=== PATIENT | female | born 1985 | race Caucasian/White ===

== ENCOUNTER → 2018-09-15 13:04 | Outpatient (CLI) | payer OTHER, MEDICAID, SELFPAY ==
[2018-09-15 13:13] LABS: Bacteria Urine None Seen
[2018-09-15 13:44] LABS: Hematocrit 43.4 % (36-46); Hemoglobin 14.7 g/dL (12.0-16.0); Mean Corpuscular Hemoglobin 26.6 PG (26-34); Mean Corpuscular Volume 78.3 fL (80-100); Platelet Count 401 X10^3/uL (150-400); Red Blood Cell Count 5.54 X10^6/uL (4.0-5.2); Red Cell Distribution Width 14.1 % (11.6-14.8); White Blood Cell Count 6.9 X10^3/uL (4.5-11.0)
[2018-09-15 14:03] LABS: Appearance Urine UA CLOUDY; Bilirubin Urine UA NEGATIVE (NEGATIVE); Color Urine UA YELLOW; Glucose Urine UA NEGATIVE (Negative); Ketones Urine UA TRACE (NEGATIVE); Leukocyte Esterase Urine UA 2+ (NEGATIVE); Nitrite Urine UA POSITIVE (Negative); Occult Blood Urine UA 1+ (Negative); Protein Urine UA TRACE (Negative); Urobilinogen Urine UA 0.2 E.U./dL (0.2)
[2018-09-15 14:10] LABS: Alanine Aminotransferase 25 IU/L (9-52); Albumin 4.6 g/dL (3.5-5.0); Albumin Globulin Ratio 1.4 (1.0-2.8); Alkaline Phosphatase 139 U/L (38-126); Aspartate Aminotransferase 22 IU/L (14-36); BUN Creatinine Ratio 15.7 (6-22); Bilirubin Total 0.5 mg/dL (0.2-1.3); Blood Urea Nitrogen 11 mg/dL (7-17); Carbon Dioxide 18 mmol/L (22-32); Chloride 111 mmol/L (98-107); Cholesterol 232 mg/dL (140-199); Estimated Glomerular Filt Rate > 60.0 mL/min (>60); Globulin 3.3 g/dL (1.7-4.1); Glucose 101 mg/dL (70-100); HDL Cholesterol 51 mg/dL (40-60); HEMOLYSIS < 15 (0-50); LDL Cholesterol Calculated 154 mg/dL (<100); Potassium 4.7 mmol/L (3.4-5.1); Sodium 142 mmol/L (137-145); Total Protein 7.9 g/dL (6.3-8.2); Triglycerides 134 mg/dL (35-150)
[2018-09-15 14:34] LABS: TSH w/ Reflex to FT4 2.86 uIU/mL (0.47-4.68)
[2018-09-15 14:35] LABS: Neutrophils Absolute Manual 3864 /uL (3000-5900); RBC Morphology Normal Morphology; Total Cells Counted 100
[2018-09-15 14:58] LABS: RBC Urine 1-5/HPF (0-5/HPF); Squamous Epithelial Cell Urine 5-10 /HPF (0-5/HPF); Transitional Epi Cells Urine 1-5/HPF (0-5/HPF); WBC Urine 10-30/HPF (0-5/HPF)
[2018-09-16 09:19] LABS: Culture Indicated Urine Specimen Cultured
== END ==
PROVIDERS: PCP Nurse Practitioner; Visit Provider Nurse Practitioner
DX: E78.5 Hyperlipidemia, unspecified (principal); N39.0 Urinary tract infection, site not specified; Z00.00 Encounter for general adult medical examination without abnormal findings
CPT/HCPCS: 36415; 80053; 80061; 81001; 84443; 85025; 87077; 87086; 87186

== ENCOUNTER 2019-04-16 12:44 | Emergency (ER) | payer OTHER, MEDICAID, SELFPAY ==
[2019-04-16 13:09] VITALS: BP 132/81; PULSE 89; RESP 15; TEMP 37.2; O2SAT 98; BMI 41.5
--- NOTE | 2019-04-16 14:59 | ED.PSYCH ---
HPI - Psych General Chief Complaint: Psychiatric Symptoms Stated Complaint: in family, now has anxiety and mental health Time Seen by Provider: 04/16/19 12:59 Source: patient Mode of arrival: Ambulatory Limitations: no limitations History of Present Illness HPI Narrative: 33-year-old female with a significant history of mental health issues in the past with prior attempts at suicide here for evaluation of multiple symptoms. She states that last week she was started on Augmentin for sinus infection. She states that the day after she started the antibiotics she started having nausea vomiting and diarrhea. This continued since then. It is also on the same day that she learned that a relative of hers committed suicide. She states she has been feeling very depressed since then. Also having anxiety. She denies any suicidal homicidal ideation however she states that ?I do not feel anything ?which he states concerns her. Denies any alcohol or drug use. Has not tried anything for symptoms. Is taking her normal medications. Related Data Home Medications Medication Instructions Recorded Confirmed escitalopram oxalate 10 mg tablet 10 mg PO DAILY 11/25/18 04/16/19 albuterol sulfate [Ventolin HFA] 2 puff INH Q4HP PRN 04/16/19 amoxicillin-pot clavulanate 1 tab PO [id number] 04/16/19 04/16/19 [Augmentin] oxybutynin chloride 5 mg PO DAILY 04/16/19 04/16/19 Previous Rx's Medication Instructions Recorded lorazepam [Ativan] 1 mg PO TID PRN #10 tab 04/16/19 ondansetron 4 mg PO Q6H PRN #7 tab 04/16/19 Allergies Allergy/AdvReac Type Severity Reaction Status Date / Time hydrocodone [From VICODIN] Allergy Severe Rash and Verified 04/16/19 13:09 vomiting, trouble breathing. diazepam [From Valium] Allergy Intermediate hives Verified 04/16/19 13:09 sumatriptan [From IMITREX] Allergy Unknown Verified 04/16/19 13:09 Review of Systems Constitutional Constitutional: Denies fever(s) ENT Ears, Nose, Mouth, and Throat: Denies vertigo and Denies dizziness Cardiovascular Cardiovascular: Denies chest pain and Denies dyspnea Respiratory Respiratory: Denies cough and Denies dyspnea Gastrointestinal Gastrointestinal: Reports abdominal pain, Reports diarrhea, Reports nausea and Reports vomiting Genitourinary Genitourinary: Denies dysuria Musculoskeletal Musculoskeletal: Denies myalgias and Denies arthralgias Integumentary/Breasts Skin/Breast: Denies lesions and Denies rash Neurologic Neurologic: Reports behavioral changes, Denies confusion, Denies vertigo and Denies dizziness Psychiatric Psychiatric: Reports anxiety, Reports behavioral changes, Denies confusion, Denies homicidal ideation and Denies suicidal ideation Hematologic/Lymphatic Hematologic/Lymphatic: Denies easy bleeding and Denies easy bruising Patient History Medical History Morbid obesity with BMI of 45.0-49.9, adult (Inactive) Family History (Updated 01/20/15 @ 00:00 by Conversion Provider) Grandmother Age: 88 COPD (chronic obstructive pulmonary disease) Arthritis Asthma Hypertension High cholesterol Mother Age: 55 Endometriosis Hypertension High cholesterol Grandmother Age: 79 COPD (chronic obstructive pulmonary disease) Social History Smoking Status: Never smoker Smoking Status: Never smoker alcohol intake frequency: other Substance Use Type: does not use Exam Initial Vital Signs Initial Vital Signs: Vital Signs Temperature 98.9 F 04/16/19 13:09 Pulse Rate 89 04/16/19 13:09 Respiratory Rate 15 04/16/19 13:09 Blood Pressure 132/81 04/16/19 13:09 Pulse Oximetry 98 04/16/19 13:09 Const General: cooperative, comfortable, well developed and well groomed Limitations: mental status not altered HENMT Head: normal to inspection and normocephalic Resp Effort & Inspection: normal respiratory effort Cardio Rate: regular rate Skin Lesions: no lesions Neuro General: alert and awake Cognition: normal cognition Speech: speech normal Extrem General: normal to inspection Psych Appearance: grossly normal and well kempt Speech and Movement: not agitated and not restless Mood: congruent mood Affect: normal affect Attitude: cooperative Thought Process: normal Thought Content: suicidality Course Orders Ordered: ED Orders 04/16/19 15:26 Consult to WIRE BOUND BOX MACHINE OPERATOR - Silver Steward Stat Vital Signs Vital signs: Vital Signs - 8 hr 04/16/19 13:09 04/16/19 16:52 Temperature 98.9 F Pulse Rate 89 74 Respiratory Rate 15 16 Blood Pressure 132/81 Blood Pressure [Right Arm] 124/77 Pulse Oximetry 98 99 MDM - Psych MDM Narrative Medical decision making narrative: Discuss the patient's nausea and vomiting and diarrhea. I did inform her that it could be related to the antibiotics that she is on. Also stated that he could also be the anxiety that she is having. Informed her that since she has been on antibiotics for 7 days that she could stop the last day if she would like. Will send her home with nausea medication for this. Patient is also exhibiting anxiety. She denied any suicidal homicidal ideation. She stated that she does not feel like she needs admitted to the hospital. Attempted to contact case management here in the hospital to have them come and talk with the patient or they are unavailable. We were able to get a follow-up phone call this evening from [facility]. Patient states she is okay with this. Send her home with some Ativan. She is going to call her mental health provider tomorrow for follow-up. She was given strict return precautions. She stated that she does feel safe going home and will contact someone if her symptoms start to worsen. Discharge Plan Departure Patient Disposition: Home Clinical Impression: Anxiety, Nausea Diarrhea Qualifiers: Diarrhea type: unspecified type Qualified Code(s): R19.7 - Diarrhea, unspecified Discharge Date/Time: 04/16/19 16:57 Instructions: DI for Anxiety -- Adult, DI for Nausea -- Adult Activity Restrictions/Additional Instructions: Recommend that you contact your mental health provider tomorrow to discuss follow-up. Continue to take all of your medications like we discussed. Return to the emergency department for any new or worsening symptoms Prescriptions: New ondansetron 4 mg tablet,disintegrating 4 mg PO Q6H PRN (Reason: nausea and vomiting) Qty: 7 RF: 0 lorazepam [Ativan] 1 mg tablet 1 mg PO TID PRN (Reason: anxiety) Qty: 10 RF: 0 No Action escitalopram oxalate [Lexapro] 10 mg tablet 10 mg PO DAILY RF: 0 oxybutynin chloride 5 mg tablet extended release 24hr 5 mg PO DAILY RF: 0 amoxicillin-pot clavulanate [Augmentin] 875-125 mg tablet 1 tab PO [id number] RF: 0 albuterol sulfate [Ventolin HFA] 90 MCG/PUFF HFA aerosol inhaler 2 puff INH Q4HP PRN (Reason: Shortness Of Breath) RF: 0 Referrals: Aditi uL ARNP [Primary Care Provider] -
--- NOTE | 2019-04-16 16:50 | CM.DPNOTE ---
Spoke to Dr. Tobin via phone. MD reported that patient was not suicidal just feeling down and overwhelmed. Recommended MD give patient Hospice of the support services information and [place] [facility] [place] phone call maggy and talk to her about scheduling an appointment for tomorrow..They have availability. I called ED and spoke to [place], she had just discharged patient but she was just walking out and she was going to let patient know [facility] [place] in about 3 hours.
[2019-04-16 16:52] VITALS: BP 124/77; PULSE 74; RESP 16; O2SAT 99
== END 2019-04-16 16:57 | disposition home or self-care (01) ==
PROVIDERS: Emergency Provider Emergency Medicine; PCP Nurse Practitioner
DX: F41.9 Anxiety disorder, unspecified (principal); R11.0 Nausea; R19.7 Diarrhea, unspecified
CPT/HCPCS: 99282; 99283

== ENCOUNTER 2019-04-28 14:46 | Emergency (ER) | payer OTHER, MEDICAID, SELFPAY ==
[2019-04-28 14:57] VITALS: BP 123/79; PULSE 93; RESP 16; TEMP 37.2; O2SAT 99
--- NOTE | 2019-04-28 15:07 | PC.NURSE ---
Pt had stated that she was here in the ED on 04/15, put on Augmentin for a sinus infection.States It didn't do anything. Has appt with PCP on 05/23.Also states was given Rx for anti-anxiety med which she is out of & cannot get in to see her Provider for refill.
--- NOTE | 2019-04-28 15:51 | ED.ANXIETY ---
HPI - Anxiety General Chief Complaint: Anxiety Stated Complaint: SEVERE ANXIETY Time Seen by Provider: 04/28/19 14:46 Source: patient Mode of arrival: Ambulatory Limitations: no limitations History of Present Illness HPI narrative: 33F nonsmoker with long history of anxiety presents with her mother and chief complaint of ongoing anxiety and other complaints and nausea, vomiting diarrhea and difficulty with sleep. She states that she was seen and evaluated here about a week ago and was given a short course anti exactly medications which she has run out of. She states she has a primary care provider but they do not do much work with mental health or prescribed medications. Furthermore she has prescribing provider for mental health but they were unable to get her in for many weeks. She denies any suicidal or homicidal ideation. She denies any significant alcohol, caffeine, nicotine or street drugs. She denies recent travel, injury nor fever or chills. She states that the symptoms largely started upon receiving notification that her cousin had committed suicide. MD complaint: anxiety Related Data Home Medications Medication Instructions Recorded Confirmed escitalopram oxalate 10 mg tablet 10 mg PO DAILY 11/25/18 04/16/19 albuterol sulfate [Ventolin HFA] 2 puff INH Q4HP PRN 04/16/19 amoxicillin-pot clavulanate 1 tab PO [id number] 04/16/19 04/16/19 [Augmentin] oxybutynin chloride 5 mg PO DAILY 04/16/19 04/16/19 Previous Rx's Medication Instructions Recorded lorazepam [Ativan] 1 mg PO TID PRN #10 tab 04/16/19 ondansetron 4 mg PO Q6H PRN #7 tab 04/16/19 lorazepam [Ativan] 1 mg PO BID PRN #10 tab 04/28/19 Allergies Allergy/AdvReac Type Severity Reaction Status Date / Time hydrocodone [From VICODIN] Allergy Severe Rash and Verified 04/16/19 13:09 vomiting, trouble breathing. diazepam [From Valium] Allergy Intermediate hives Verified 04/16/19 13:09 sumatriptan [From IMITREX] Allergy Unknown Verified 04/16/19 13:09 Review of Systems Constitutional Constitutional: Denies chills, Denies fatigue, Denies fever(s), Denies frequent falls, Denies lethargy and Denies weakness Eyes Eyes: Denies change in vision, Denies eye discharge, Denies irritation and Denies loss of vision ENT Ears, Nose, Mouth, and Throat: Denies change in voice, Denies dizziness, Denies neck pain, Denies sore throat and Denies throat swelling Cardiovascular Cardiovascular: Denies chest pain, Denies irregular heart rhythm, Denies lightheadedness, Denies palpitations, Denies dyspnea, Denies dyspnea on exertion and Denies orthopnea Respiratory Respiratory: Denies cough, Denies dyspnea, Denies dyspnea on exertion and Denies wheezing Gastrointestinal Gastrointestinal: Denies abdominal pain, Denies change in bowel habits, Denies diarrhea, Denies nausea and Denies vomiting Genitourinary Genitourinary: Denies hematuria, Denies flank pain, Denies urinary incontinence and Denies urinary urgency Musculoskeletal Musculoskeletal: Denies back pain, Denies muscle weakness, Denies neck pain, Denies numbness and Denies tingling Integumentary/Breasts Skin/Breast: Denies pruritus, Denies erythema, Denies rash and Denies wounds Neurologic Neurologic: Denies behavioral changes, Denies confusion, Denies dizziness, Denies frequent falls, Denies loss of vision, Denies numbness, Denies tingling and Denies weakness Psychiatric Psychiatric: Reports anxiety, Denies behavioral changes, Denies confusion, Denies depression, Denies homicidal ideation and Denies suicidal ideation Endocrine Endocrine: Denies fatigue, Denies flushing and Denies palpitations Hematologic/Lymphatic Hematologic/Lymphatic: Denies easy bruising Allergic/Immunologic Allergic/Immunologic: Denies urticaria, Denies throat swelling and Denies wheezing Patient History Medical History Morbid obesity with BMI of 45.0-49.9, adult (Inactive) Family History Grandmother Age: 88 COPD (chronic obstructive pulmonary disease) Arthritis Asthma Hypertension High cholesterol Mother Age: 55 Endometriosis Hypertension High cholesterol Grandmother Age: 79 COPD (chronic obstructive pulmonary disease) Social History Smoking Status: Never smoker Smoking Status: Never smoker alcohol intake frequency: other Substance Use Type: does not use Exam Narrative Exam Narrative: GENERAL: [33] year old patient appears stated age. Well-nourished, well-developed patient, in mild distress. Mildly tearful. Good insight HEAD: Atraumatic. Normocephalic. EYES: Pupils equal round and reactive. Extraocular motions intact. No scleral icterus. No injection or drainage. ENT: Nose without bleeding, purulent drainage. Throat without erythema, tonsillar hypertrophy or exudate. Airway patent. NECK: Trachea midline. Non tender CARDIOVASCULAR: Regular rate and rhythm without murmurs, gallops, or rubs. RESPIRATORY: Clear to auscultation. Breath sounds equal bilaterally. No wheezes, rales, or rhonchi. GASTROINTESTINAL: Abdomen soft, non-tender, nondistended. EXTREMITIES: No edema or joint tenderness. BACK: Nontender without deformity or crepitance. No flank tenderness. NEURO: AOx3. SKIN: No rash or erythema of visible areas Initial Vital Signs Initial Vital Signs: Vital Signs Temperature 98.9 F 04/28/19 14:57 Pulse Rate 93 H 04/28/19 14:57 Respiratory Rate 16 04/28/19 14:57 Blood Pressure 123/79 04/28/19 14:57 Pulse Oximetry 99 04/28/19 14:57 Course Orders Ordered: ED Orders 04/28/19 15:06 Consult to NET LEAD DEVELOPER - Marshmallow Machine Worker Stat Reevaluation(s) Reevaluation #1: patient seen by NET LEAD DEVELOPER and close follow up secured (see their note and DC instructions for details) Vital Signs Vital signs: Vital Signs - 8 hr 04/28/19 14:57 04/28/19 16:17 Temperature 98.9 F Pulse Rate 93 H 88 Respiratory Rate 16 16 Blood Pressure 123/79 Blood Pressure [Left Arm] 127/83 Pulse Oximetry 99 98 Discharge Plan Departure Patient Disposition: Home Clinical Impression: Acute anxiety Discharge Date/Time: 04/28/19 16:20 Instructions: Anxiety Disorders Activity Restrictions/Additional Instructions: *You have been diagnosed with [ Acute on Chronic Anxiety ] *What to do: *Take medications as directed *Follow up with your counselor tomorrow through [facility] via the already planned telephone call *Follow up with your Psychiatrist on at 1130am at the [facility] ([phone]) *Return to ER if you should have any new, worsening or concerning symptoms Prescriptions: New lorazepam [Ativan] 1 mg tablet 1 mg PO BID PRN (Reason: anxiety) Qty: 10 RF: 0 No Action escitalopram oxalate [Lexapro] 10 mg tablet 10 mg PO DAILY RF: 0 oxybutynin chloride 5 mg tablet extended release 24hr 5 mg PO DAILY RF: 0 amoxicillin-pot clavulanate [Augmentin] 875-125 mg tablet 1 tab PO [id number] RF: 0 albuterol sulfate [Ventolin HFA] 90 MCG/PUFF HFA aerosol inhaler 2 puff INH Q4HP PRN (Reason: Shortness Of Breath) RF: 0 ondansetron 4 mg tablet,disintegrating 4 mg PO Q6H PRN (Reason: nausea and vomiting) Qty: 7 RF: 0 lorazepam [Ativan] 1 mg tablet 1 mg PO TID PRN (Reason: anxiety) Qty: 10 RF: 0 Referrals: [facility] [Outside] [facility] [Outside] Aditi Lu ARNP [Primary Care Provider] -
[2019-04-28 16:17] VITALS: BP 127/83; PULSE 88; RESP 16; O2SAT 98
== END 2019-04-28 16:20 | disposition home or self-care (01) ==
PROVIDERS: Emergency Provider Emergency Medicine; PCP Nurse Practitioner
DX: F41.9 Anxiety disorder, unspecified (principal); R11.2 Nausea with vomiting, unspecified; R19.7 Diarrhea, unspecified
CPT/HCPCS: 99281

== ENCOUNTER 2019-05-06 17:55 | Emergency (ER) | payer OTHER, MEDICAID, SELFPAY ==
[2019-05-06 18:01] VITALS: BP 129/69; PULSE 97; RESP 18; TEMP 36.4; O2SAT 99
--- NOTE | 2019-05-06 18:14 | ED_ITS ---
HPI - Psych General Chief Complaint: Psychiatric Symptoms Stated Complaint: mental health consult Time Seen by Provider: 05/06/19 18:14 Source: patient and family (mother) Mode of arrival: Ambulatory Limitations: no limitations History of Present Illness HPI Narrative: This is a 33-year-old female who comes with request for voluntary placement. Patient states she feels mentally unstable she has a history of anxiety and depression. She has a history of cutting herself. She states she does not wish to kill herself right now but she is having thoughts frequently. She states she does not wish to harm anyone else but she does have thoughts and faint a size about harming people who ?annoy her?. Patient states that she had a cousin who in the last month, a grandmother who fell and was injured and another cousin who was missing but was ultimately found and these have all been exacerbating factors. She actually states she tends to self isolate quite a bit so she has not found the recent changes with self isolation to be frustrating or much of a change other than her family is spending more time with her. Patient is not having hallucinations she was seen by her counselor who felt that she did need placement and patient is willing involuntary at this time. She has had placement at psychiatric facilities at [facility] and [facility] in the past. She was seen twice here earlier this month for anxiety and was given lorazepam which is sometimes helpful when she is having increased anxiety attacks. Her physician changed to clonazepam but told her she can still take the lorazepam on an emergent basis. She is accompanied by her mother who also correlates her story and history. Related Data Home Medications Medication Instructions Recorded Confirmed oxybutynin chloride 5 mg PO DAILY 04/16/19 05/06/19 clonazepam 2 mg PO BID 05/06/19 05/06/19 diphenhydramine HCl [Sleep Aid 50 mg PO BEDTIME 05/06/19 05/06/19 (diphenhydramine)] famotidine [Pepcid] 20 mg PO DAILY 05/06/19 05/06/19 fexofenadine-pseudoephedrine 1 tab PO QAM 05/06/19 05/06/19 [Peyton-D 24 Hour] Allergies Allergy/AdvReac Type Severity Reaction Status Date / Time hydrocodone [From VICODIN] Allergy Severe Rash and Verified 03/25/20 22:58 vomiting, trouble breathing. diazepam [From Valium] Allergy Intermediate hives Verified 05/06/19 22:58 sumatriptan [From IMITREX] Allergy Unknown Verified 05/06/19 22:58 Review of Systems Review of Systems ROS Unobtainable: All systems reviewed & are unremarkable except as noted in HPI and below Patient History Medical History Morbid obesity with BMI of 45.0-49.9, adult (Inactive) Social History Smoking Status: Never smoker Smoking Status: Never smoker alcohol intake frequency: other Substance Use Type: does not use Exam Narrative Exam Narrative: GENERAL: Alert and oriented x three, obese female in mild distress. HEENT: Head normocephalic, atraumatic, EOMI, pupils reactive, face symmetric, moist mucous membranes NECK: Supple, full range of motion CARDIOVASCULAR: Regular rate and rhythm without murmurs, rubs or gallops. RESPIRATORY: Breath sounds equal bilaterally, no wheezes rales or rhonchi. ABDOMEN: Soft, nontender. Normoactive bowel sounds all 4 quadrants. No guarding or rebound, rigidity, no mass : No CVA tenderness EXTREMITIES: Normal range of motion, no clubbing or edema. Neurovascularly intact NEUROLOGICAL: Cranial nerves II through XII grossly intact. Moving all extremities SKIN: Warm, dry, no petechiae, no rashes or lesions PSYCH: Suicidal thoughts, no current intent, no hallucinations. Positive for depression and anxiety as well as history of PTSD. Initial Vital Signs Initial Vital Signs: Vital Signs Temperature 97.5 F L 05/06/19 18:01 Pulse Rate 97 H 05/06/19 18:01 Respiratory Rate 18 05/06/19 18:01 Blood Pressure 129/69 05/06/19 18:01 Pulse Oximetry 99 05/06/19 18:01 Course Orders Ordered: ED Orders 05/06/19 18:47 Complete Blood Count AUTO DIFF Stat Comprehensive Metabolic Panel Stat Ethanol (ETOH) Stat Lipase Stat Thyroid Stimulating Hormone Stat 05/06/19 19:25 Urine Culture Stat Urine Drug Screen, Rapid Stat Urine Microscopic Stat Vital Signs Vital signs: Vital Signs - 8 hr 05/06/19 18:01 05/06/19 22:19 05/06/19 23:59 Temperature 97.5 F L 98.7 F Pulse Rate 97 H 74 76 Respiratory Rate 18 18 18 Blood Pressure 129/69 Blood Pressure [Left Arm] 109/61 117/76 Pulse Oximetry 99 99 99 MDM - Psych Lab Data Attestation: I reviewed the patient's lab results. Result diagrams: 05/06/19 18:47 05/06/19 18:47 Labs: Lab Results 05/06/19 05/06/19 05/06/19 Range/Units 18:47 18:47 18:47 WBC 10.9 (4.5-11.0) X10^3/uL RBC 5.29 H (4.0-5.2) X10^6/uL Hgb 14.4 (12.0-16.0) g/dL Hct 42.7 (36-46) % MCV 80.8 (80-100) fL MCH 27.3 (26-34) PG MCHC 33.8 (30-36) % RDW 13.3 (11.6-14.8) % Plt Count 412 H (150-400) X10^3/uL Neut % (Auto) 64.2 (50-75) % Lymph % (Auto) 28.2 (25-40) % [place] % (Auto) 5.8 (3-14) % Eos % (Auto) 0.7 L (2-4) % Baso % (Auto) 1.1 (0-2) % Neut # (Auto) 7000 (6302-1117) /uL Lymph # (Auto) 3100 (7427-1458) /uL [place] # (Auto) 600 (0-900) /uL Eos # (Auto) 100 (0-450) /uL Baso # (Auto) 100 (0-100) /uL Sodium 140 (137-145) mmol/L Potassium 4.1 (3.4-5.1) mmol/L Chloride 104 (98-107) mmol/L Carbon Dioxide 23 (22-32) mmol/L BUN 16 (7-17) mg/dL Creatinine 0.79 (0.52-1.04) mg/dL Estimated GFR > 60.0 (>60) mL/min BUN/Creatinine Ratio 20.3 (6-22) Glucose 93 (70-100) mg/dL Calcium 9.9 (8.4-10.2) mg/dL Total Bilirubin 0.3 (0.2-1.3) mg/dL AST 21 (14-36) IU/L ALT 13 (<35) IU/L Alkaline Phosphatase 141 H (38-126) U/L Total Protein 8.5 H (6.3-8.2) g/dL Albumin 4.6 (3.5-5.0) g/dL Globulin 3.9 (1.7-4.1) g/dL Albumin/Globulin Ratio 1.2 (1.0-2.8) Lipase (23-300) U/L TSH 2.86 (0.47-4.68) uIU/mL Urine RBC (0-5/HPF) Urine WBC (0-5/HPF) Ur Squamous Epith Cells (0-5/HPF) Urine Bacteria (None) Ur Culture Indicated? U Opiates 300ng/mL cut (Negative) Ur Oxycodone Screen (Negative) Urine Methadone Screen (Negative) Ur Barbiturates Screen (Negative) U Tricyclic Antidepress (Negative) Ur Phencyclidine Scrn (Negative) Ur Amphetamines Screen (Negative) U Methamphetamines Scrn (Negative) Ur MDMA Scrn (Ecstasy) (Negative) U Benzodiazepines Scrn (Negative) Urine Cocaine Screen (Negative) U Marijuana (THC) Screen (Negative) Ethyl Alcohol < 10 ( - 10) mg/dL 05/06/19 05/06/19 05/06/19 Range/Units 18:47 19:25 19:25 WBC (4.5-11.0) X10^3/uL RBC (4.0-5.2) X10^6/uL Hgb (12.0-16.0) g/dL Hct (36-46) % MCV (80-100) fL MCH (26-34) PG MCHC (30-36) % RDW (11.6-14.8) % Plt Count (150-400) X10^3/uL Neut % (Auto) (50-75) % Lymph % (Auto) (25-40) % [place] % (Auto) (3-14) % Eos % (Auto) (2-4) % Baso % (Auto) (0-2) % Neut # (Auto) (5011-9778) /uL Lymph # (Auto) (4650-6907) /uL [place] # (Auto) (0-900) /uL Eos # (Auto) (0-450) /uL Baso # (Auto) (0-100) /uL Sodium (137-145) mmol/L Potassium (3.4-5.1) mmol/L Chloride (98-107) mmol/L Carbon Dioxide (22-32) mmol/L BUN (7-17) mg/dL Creatinine (0.52-1.04) mg/dL Estimated GFR (>60) mL/min BUN/Creatinine Ratio (6-22) Glucose (70-100) mg/dL Calcium (8.4-10.2) mg/dL Total Bilirubin (0.2-1.3) mg/dL AST (14-36) IU/L ALT (<35) IU/L Alkaline Phosphatase (38-126) U/L Total Protein (6.3-8.2) g/dL Albumin (3.5-5.0) g/dL Globulin (1.7-4.1) g/dL Albumin/Globulin Ratio (1.0-2.8) Lipase 138 (23-300) U/L TSH (0.47-4.68) uIU/mL Urine RBC 1-5/hpf (0-5/HPF) Urine WBC 5-10/hpf H (0-5/HPF) Ur Squamous Epith Cells 1-5 /hpf (0-5/HPF) Urine Bacteria Few (2-10) H (None) Ur Culture Indicated? Specimen cultured U Opiates 300ng/mL cut Negative (Negative) Ur Oxycodone Screen Negative (Negative) Urine Methadone Screen Negative (Negative) Ur Barbiturates Screen Negative (Negative) U Tricyclic Antidepress Negative (Negative) Ur Phencyclidine Scrn Negative (Negative) Ur Amphetamines Screen Negative (Negative) U Methamphetamines Scrn Negative (Negative) Ur MDMA Scrn (Ecstasy) Negative (Negative) U Benzodiazepines Scrn Negative (Negative) Urine Cocaine Screen Negative (Negative) U Marijuana (THC) Screen Negative (Negative) Ethyl Alcohol ( - 10) mg/dL Point of Care Testing Test Results Negative Urine Dip Bedside Urine Glucose Negative Bedside Urine Bilirubin - Negative Bedside Urine Ketone - Negative Urine Specific [place] 1.020 Bedside Urine Occult Blood +/- Bedside Urine pH 6.0 Bedside Urine Protein +/- 15 Bedside Urine Urobilinogen - Negative Bedside Urine Nitrite - Negative Bedside Urine Leukocytes + 70 Esterase MDM Narrative Medical decision making narrative: Patient comes in for feeling mentally unstable. She is having suicidal ideation but does not have intent. She is more anxious and depressed. She has thoughts more cutting herself but has had thoughts of killing herself as well. Patient has been in touch with her physician but with the recent covid pandemic she is not able to have [id number] visits and her psychiatrist is currently hospitalized, she has been able to speak with her counselor. Discussed with patient she is interested involuntary placement and her counselor felt that she would benefit from this as well. She is currently medically cleared here in the department paperwork was faxed to [facility] patient was accepted by Dr. Oakes. Discharge Plan Departure Patient Disposition: [facility] Clinical Impression: Depression with suicidal ideation, Anxiety Discharge Date/Time: 05/07/19 00:13 Prescriptions: No Action oxybutynin chloride 5 mg tablet extended release 24hr 5 mg PO DAILY RF: 0 clonazepam 2 mg tablet 2 mg PO BID RF: 0 diphenhydramine HCl [Sleep Aid (diphenhydramine)] 50 mg Capsule 50 mg PO BEDTIME RF: 0 famotidine [Pepcid] 20 mg Tablet 20 mg PO DAILY RF: 0 Peyton-D 24 Hour 180-240 mg Tablet Extended Release 24 Hr 1 tab PO QAM RF: 0 Referrals: Aditi Lu ARNP [Primary Care Provider] -
[2019-05-06 18:53] LABS: Add Manual Diff / Slide Review NO; Basophils Absolute Auto 100 /uL (0-100); Basophils Percent Auto 1.1 % (0-2); Eosinophils Absolute Auto 100 /uL (0-450); Eosinophils Percent Auto 0.7 % (2-4); Hematocrit 42.7 % (36-46); Hemoglobin 14.4 g/dL (12.0-16.0); Lymphocytes Absolute Auto 3100 /uL (1100-4500); Lymphocytes Percent Auto 28.2 % (25-40); Mean Corpuscular HGB Conc 33.8 % (30-36); Mean Corpuscular Hemoglobin 27.3 PG (26-34); Mean Corpuscular Volume 80.8 fL (80-100); Monocytes Absolute Auto 600 /uL (0-900); Monocytes Percent Auto 5.8 % (3-14); Neutrophils Absolute Auto 7000 /uL (1500-7000); Neutrophils Percent Auto 64.2 % (50-75); Platelet Count 412 X10^3/uL (150-400); Red Blood Cell Count 5.29 X10^6/uL (4.0-5.2); Red Cell Distribution Width 13.3 % (11.6-14.8); White Blood Cell Count 10.9 X10^3/uL (4.5-11.0)
[2019-05-06 19:03] LABS: Lipase 138 U/L (23-300)
[2019-05-06 19:05] LABS: Alanine Aminotransferase 13 IU/L (<35); Albumin 4.6 g/dL (3.5-5.0); Albumin Globulin Ratio 1.2 (1.0-2.8); Alkaline Phosphatase 141 U/L (38-126); Aspartate Aminotransferase 21 IU/L (14-36); BUN Creatinine Ratio 20.3 (6-22); Bilirubin Total 0.3 mg/dL (0.2-1.3); Blood Urea Nitrogen 16 mg/dL (7-17); Calcium 9.9 mg/dL (8.4-10.2); Carbon Dioxide 23 mmol/L (22-32); Chloride 104 mmol/L (98-107); Estimated Glomerular Filt Rate > 60.0 mL/min (>60); Ethanol (ETOH) < 10 mg/dL; Globulin 3.9 g/dL (1.7-4.1); Glucose 93 mg/dL (70-100); HEMOLYSIS < 15 (0-50); Potassium 4.1 mmol/L (3.4-5.1); Sodium 140 mmol/L (137-145); Total Protein 8.5 g/dL (6.3-8.2)
[2019-05-06 19:45] LABS: Ur Creatinine Normal (Normal); Ur Specific Gravity Normal (Normal); Urine pH Normal (Normal)
[2019-05-06 19:46] LABS: UR Morphine/Opiate cutoff 300 Negative (Negative); Urine Amphetamines Negative (Negative); Urine Barbiturates Negative (Negative); Urine Benzodiazepines Negative (Negative); Urine Cocaine Negative (Negative); Urine MDMA Negative (Negative); Urine Methadone Negative (Negative); Urine Methamphetamines Negative (Negative); Urine Oxycodone Negative (Negative); Urine Phencyclidine Negative (Negative); Urine Tetrahydrocannabinol Negative (Negative); Urine Tricyclic Antidepressant Negative (Negative)
[2019-05-06 19:47] LABS: Bacteria Urine Few (2-10); Culture Indicated Urine Specimen Cultured; RBC Urine 1-5/HPF (0-5/HPF); Squamous Epithelial Cell Urine 1-5 /HPF (0-5/HPF); WBC Urine 5-10/HPF (0-5/HPF)
[2019-05-06 19:49] LABS: Thyroid Stimulating Hormone 2.86 uIU/mL (0.47-4.68)
[2019-05-06 22:19] VITALS: BP 109/61; PULSE 74; RESP 18; TEMP 37.1; O2SAT 99
--- NOTE | 2019-05-06 23:26 | PC.NURSE ---
Report given to Marisabel Love.
[2019-05-06 23:59] VITALS: BP 117/76; PULSE 76; RESP 18; O2SAT 99
== END 2019-05-07 00:13 | disposition short-term general hospital (02) ==
PROVIDERS: Emergency Provider Emergency Medicine; PCP Nurse Practitioner
DX: R45.851 Suicidal ideations (principal); F32.9 Major depressive disorder, single episode, unspecified; F41.9 Anxiety disorder, unspecified; E66.9 Obesity, unspecified
CPT/HCPCS: 36415; 80053; 80305; 80320; 81003; 81015; 81025; 83690; 84443; 85025; 87086; 99284

== ENCOUNTER 2019-05-14 12:38 | Emergency (ER) | payer OTHER, MEDICAID, SELFPAY ==
[2019-05-14 12:42] VITALS: BP 118/66; PULSE 100; RESP 14; TEMP 36.3; O2SAT 99; BMI 42.0
--- NOTE | 2019-05-14 13:05 | ED.PSYCH ---
HPI - Psych <Viviana GramajoREYES - Last Filed: 05/14/19 20:53> General Chief Complaint: Psychiatric Symptoms Stated Complaint: Need to be admitted to psych [facility] Time Seen by Provider: 05/14/19 12:50 Source: patient Mode of arrival: Ambulatory History of Present Illness HPI Narrative: 33yo female with a history of bipolar, DANIELITO, OCD, self-mutilation, suicide attempts, and PTSD, presents emergency department stating ?I need to be admitted to the psychiatric unit at [facility]. I called them, they have a bed but told me to come here for evaluation. Patient states she has had increased thoughts of cutting herself, she has not cut herself in the past few weeks. She states, ?I feel like I am at the point that if I started cutting myself I will not be able to stop and it may lead to suicide ?. Patient states her plan was to ?cut deeper ?. She states I used a clean razor blade, I angle the razor blade because they are sharp and I don't want to cut too deep, and I clean up the cuts frequently ? She states that her therapist states ?she has the clean is cutter ?. She states her recent triggers are that her cousin committed suicide in March and her grandma ?face planted and had a bad injury from a fall. She also states it has been difficult not seeing her therapist, she feels that ?actually seeing someone for therapy would be helpful ?. Patient states she was put on ?15 medications that are making me feel like I am drunk, occasionally run into simon ?. She denies using any alcohol or recreational drugs. Patient states her parents, psychiatrist, and therapist agree that admission would be a good idea this point. Patient denies any other symptoms such as head injury, fevers, chest pain, shortness of breath, nausea, vomiting, diarrhea, or any other concerns. Related Data Home Medications Medication Instructions Recorded Confirmed oxybutynin chloride 5 mg PO DAILY 04/16/19 05/06/19 clonazepam 2 mg PO BID 05/06/19 05/06/19 diphenhydramine HCl [Sleep Aid 50 mg PO BEDTIME 05/06/19 05/06/19 (diphenhydramine)] famotidine [Pepcid] 20 mg PO DAILY 05/06/19 05/06/19 fexofenadine-pseudoephedrine 1 tab PO QAM 05/06/19 05/06/19 [Peyton-D 24 Hour] Allergies Allergy/AdvReac Type Severity Reaction Status Date / Time hydrocodone [From VICODIN] Allergy Severe Rash and Verified 05/14/19 12:50 vomiting, trouble breathing. diazepam [From Valium] Allergy Intermediate hives Verified 05/14/19 12:50 sumatriptan [From IMITREX] Allergy Unknown Verified 05/14/19 12:50 Review of Systems <REYES Omalley - Last Filed: 05/14/19 20:53> Review of Systems Narrative: REVIEW OF SYSTEMS: GENERAL: Denies fever or chills. HENT: No head trauma, hearing loss or sore throat. EYES: No loss of vision, double vision, eye pain, or irritation. CARDIOVASCULAR: No chest pain or syncope. RESPIRATORY: No shortness of breath or cough. GASTROINTESTINAL: No nausea, vomiting, diarrhea, or constipation. GENITOURINARY: No flank pain or dysuria. MUSCULOSKELETAL: No pain, weakness, or deformities. INTEGUMENTARY: No rash, lesions, or pruritus. NEURO: No numbness, tingling, memory loss, or confusion. PSYCH: Reports increased anxiety and thoughts of hurting herself, see HPI. Patient History <REYES Omalley - Last Filed: 05/14/19 20:53> Medical History Morbid obesity with BMI of 45.0-49.9, adult (Inactive) Family History Grandmother Age: 88 COPD (chronic obstructive pulmonary disease) Arthritis Asthma Hypertension High cholesterol Mother Age: 55 Endometriosis Hypertension High cholesterol Grandmother Age: 79 COPD (chronic obstructive pulmonary disease) Social History Smoking Status: Never smoker Smoking Status: Never smoker alcohol intake frequency: other Substance Use Type: does not use Exam <REYES Omalley - Last Filed: 05/14/19 20:53> Initial Vital Signs Initial Vital Signs: Vital Signs Temperature 97.3 F L 05/14/19 12:42 Pulse Rate 100 H 05/14/19 12:42 Respiratory Rate 14 05/14/19 12:42 Blood Pressure 118/66 05/14/19 12:42 Pulse Oximetry 99 05/14/19 12:42 PHYSICAL EXAMINATION: GENERAL: Well groomed, alert, and cooperative. Answers questions promptly and appropriately. Vital signs noted. HENT: Normocephalic, atraumatic. Ear canals patent. Oral mucosa is pink and moist. EYES: Conjunctiva pink, sclera white, no periorbital swelling. CHEST: Normal to inspection and without deformities. CARDIOVASCULAR: S1 and S2 sounds normal. Regular rate and rhythm, no murmurs, clicks, or bruits. No pedal edema. RESPIRATORY: Normal respiratory rate, trachea midline, airway patent. No stridor, nasal flaring or accessory muscle use. Lungs are clear in all zaldivar without wheeze, rhonchi, or crackles. GASTROINTESTINAL: Bowel sounds normoactive. Abdomen is soft and non-tender. No organomegaly. MUSCULOSKELETAL: Normal gait and coordination. Equal tone and mass bilaterally. EXTREMITIES: CMS intact. Moves all extremities. SKIN: Warm, dry, soft, appropriate color for ethnicity. No lesions, rashes, or wounds. NEURO: Alert and Oriented X 3. Good coordination. No ataxia, or sensory deficits, or cognitive issues. PSYCH: Appropriate affect and mood. <Deric Shaver DO - Last Filed: 05/14/19 21:44> Initial Vital Signs Initial Vital Signs: Vital Signs Temperature 97.3 F L 05/14/19 12:42 Pulse Rate 100 H 05/14/19 12:42 Respiratory Rate 14 05/14/19 12:42 Blood Pressure 118/66 05/14/19 12:42 Pulse Oximetry 99 05/14/19 12:42 Course <REYES Omalley - Last Filed: 05/14/19 20:53> Course Course Narrative: Patient remained calm and cooperative throughout the emergency department stay. Patient was given clonazepam as she reports anxiety was increasing, she remains awake and alert before and after administration of medication. Mother at bedside. Nighttime meds were offered, patient declined at this time as she would like to wait until she arrived at the facility before taking his medications as they ?knock her out ?. Orders Ordered: ED Orders 05/14/19 12:54 Consult to DEPENDENCY CASE MANAGER - Filling Station Equipment Mechanic Stat 05/14/19 13:05 Urine Culture Stat Urine Drug Screen, Rapid Stat Urine Microscopic Stat 05/14/19 13:23 Complete Blood Count AUTO DIFF Stat Comprehensive Metabolic Panel Stat Ethanol (ETOH) Stat Thyroid Stimulating Hormone Stat Discontinued Medications Clonazepam (Klonopin) 1 mg PO NOW ONE Stop: 05/14/19 19:25 Last Admin: 05/14/19 19:48 Dose: 1 mg Documented by: MANUELA Consultations Consultation #1: Patient staffed with Dr. Shaver Vital Signs Vital signs: Vital Signs - 8 hr 05/14/19 14:21 05/14/19 20:19 Pulse Rate 87 86 Respiratory Rate 16 16 Blood Pressure [Right Arm] 111/72 116/68 Pulse Oximetry 99 99 <Deric Shaver DO - Last Filed: 05/14/19 21:44> Orders Ordered: ED Orders 05/14/19 12:54 Consult to DEPENDENCY CASE MANAGER - Filling Station Equipment Mechanic Stat 05/14/19 13:05 Urine Culture Stat Urine Drug Screen, Rapid Stat Urine Microscopic Stat 05/14/19 13:23 Complete Blood Count AUTO DIFF Stat Comprehensive Metabolic Panel Stat Ethanol (ETOH) Stat Thyroid Stimulating Hormone Stat Discontinued Medications Clonazepam (Klonopin) 1 mg PO NOW ONE Stop: 05/14/19 19:25 Last Admin: 05/14/19 19:48 Dose: 1 mg Documented by: MANUELA Vital Signs Vital signs: Vital Signs - 8 hr 05/14/19 14:21 05/14/19 20:19 Pulse Rate 87 86 Respiratory Rate 16 16 Blood Pressure [Right Arm] 111/72 116/68 Pulse Oximetry 99 99 MDM - Psych <REYES Omalley - Last Filed: 05/14/19 20:53> Medical Records Attestation: I reviewed the patient's medical records. Lab Data Attestation: I reviewed the patient's lab results. Result diagrams: 05/14/19 13:23 05/14/19 13:23 Labs: Lab Results 05/14/19 05/14/19 05/14/19 Range/Units 13:05 13:05 13:23 WBC 8.0 (4.5-11.0) X10^3/uL RBC 5.36 H (4.0-5.2) X10^6/uL Hgb 14.6 (12.0-16.0) g/dL Hct 43.1 (36-46) % MCV 80.3 (80-100) fL MCH 27.3 (26-34) PG MCHC 34.0 (30-36) % RDW 13.3 (11.6-14.8) % Plt Count 432 H (150-400) X10^3/uL Neut % (Auto) 61.6 (50-75) % Lymph % (Auto) 31.5 (25-40) % Loup % (Auto) 5.0 (3-14) % Eos % (Auto) 0.9 L (2-4) % Baso % (Auto) 1.0 (0-2) % Neut # (Auto) 4900 (9977-1153) /uL Lymph # (Auto) 2500 (8453-3076) /uL Loup # (Auto) 400 (0-900) /uL Eos # (Auto) 100 (0-450) /uL Baso # (Auto) 100 (0-100) /uL Sodium (137-145) mmol/L Potassium (3.4-5.1) mmol/L Chloride (98-107) mmol/L Carbon Dioxide (22-32) mmol/L BUN (7-17) mg/dL Creatinine (0.52-1.04) mg/dL Estimated GFR (>60) mL/min BUN/Creatinine Ratio (6-22) Glucose (70-100) mg/dL Calcium (8.4-10.2) mg/dL Total Bilirubin (0.2-1.3) mg/dL AST (14-36) IU/L ALT (<35) IU/L Alkaline Phosphatase (38-126) U/L Total Protein (6.3-8.2) g/dL Albumin (3.5-5.0) g/dL Globulin (1.7-4.1) g/dL Albumin/Globulin Ratio (1.0-2.8) TSH (0.47-4.68) uIU/mL Urine RBC 0-1/hpf (0-5/HPF) Urine WBC 0-1/hpf (0-5/HPF) Ur Squamous Epith Cells 0-1 /hpf (0-5/HPF) Amorphous Sediment 1+ Urine Bacteria Few (2-10) H (None) Ur Culture Indicated? Specimen cultured U Opiates 300ng/mL cut Negative (Negative) Ur Oxycodone Screen Negative (Negative) Urine Methadone Screen Negative (Negative) Ur Barbiturates Screen Negative (Negative) U Tricyclic Antidepress Negative (Negative) Ur Phencyclidine Scrn Negative (Negative) Ur Amphetamines Screen Negative (Negative) U Methamphetamines Scrn Negative (Negative) Ur MDMA Scrn (Ecstasy) Negative (Negative) U Benzodiazepines Scrn Negative (Negative) Urine Cocaine Screen Negative (Negative) U Marijuana (THC) Screen Negative (Negative) Ethyl Alcohol ( - 10) mg/dL 05/14/19 05/14/19 Range/Units 13:23 13:23 WBC (4.5-11.0) X10^3/uL RBC (4.0-5.2) X10^6/uL Hgb (12.0-16.0) g/dL Hct (36-46) % MCV (80-100) fL MCH (26-34) PG MCHC (30-36) % RDW (11.6-14.8) % Plt Count (150-400) X10^3/uL Neut % (Auto) (50-75) % Lymph % (Auto) (25-40) % Loup % (Auto) (3-14) % Eos % (Auto) (2-4) % Baso % (Auto) (0-2) % Neut # (Auto) (5156-5914) /uL Lymph # (Auto) (3005-3456) /uL Loup # (Auto) (0-900) /uL Eos # (Auto) (0-450) /uL Baso # (Auto) (0-100) /uL Sodium 137 (137-145) mmol/L Potassium 4.0 (3.4-5.1) mmol/L Chloride 106 (98-107) mmol/L Carbon Dioxide 22 (22-32) mmol/L BUN 12 (7-17) mg/dL Creatinine 0.68 (0.52-1.04) mg/dL Estimated GFR > 60.0 (>60) mL/min BUN/Creatinine Ratio 17.6 (6-22) Glucose 95 (70-100) mg/dL Calcium 9.5 (8.4-10.2) mg/dL Total Bilirubin 0.4 (0.2-1.3) mg/dL AST 25 (14-36) IU/L ALT 15 (<35) IU/L Alkaline Phosphatase 111 (38-126) U/L Total Protein 8.1 (6.3-8.2) g/dL Albumin 4.4 (3.5-5.0) g/dL Globulin 3.7 (1.7-4.1) g/dL Albumin/Globulin Ratio 1.2 (1.0-2.8) TSH 2.28 D (0.47-4.68) uIU/mL Urine RBC (0-5/HPF) Urine WBC (0-5/HPF) Ur Squamous Epith Cells (0-5/HPF) Amorphous Sediment Urine Bacteria (None) Ur Culture Indicated? U Opiates 300ng/mL cut (Negative) Ur Oxycodone Screen (Negative) Urine Methadone Screen (Negative) Ur Barbiturates Screen (Negative) U Tricyclic Antidepress (Negative) Ur Phencyclidine Scrn (Negative) Ur Amphetamines Screen (Negative) U Methamphetamines Scrn (Negative) Ur MDMA Scrn (Ecstasy) (Negative) U Benzodiazepines Scrn (Negative) Urine Cocaine Screen (Negative) U Marijuana (THC) Screen (Negative) Ethyl Alcohol < 10 ( - 10) mg/dL Urine Dip Bedside Urine Glucose Negative Bedside Urine Bilirubin - Negative Bedside Urine Ketone - Negative Urine Specific [place] 1.010 Bedside Urine Occult Blood +/- Bedside Urine pH 6.5 Bedside Urine Protein - Negative Bedside Urine Urobilinogen - Negative Bedside Urine Nitrite - Negative Bedside Urine Leukocytes + 70 Esterase MDM Narrative Medical decision making narrative: 33-year-old female with a history of OCD, PTSD, self-mutilation, anxiety, and bipolar disorder, presents to the emergency department for voluntary placement due to increased anxiety and thoughts of cutting herself. After evaluation with DEPENDENCY CASE MANAGER, patient is pending bed status at [facility]. Patient has remained calm and cooperative throughout the emergency department stay. There was a small amount of bacteria noted in urine, culture was sent to lab, patient was not having any symptoms of this was not treated. Urinary tox is negative, alcohol negative, patient is medically clear at this point for inpatient treatment. She was updated on plan of care, she agrees with plan of care and verbalizes understanding. Report was given to Dr. Shaver for handoff at 8:53PM. <Deric Shaver, DO - Last Filed: 05/14/19 21:44> Lab Data Labs: Lab Results 05/14/19 05/14/19 05/14/19 Range/Units 13:05 13:05 13:23 WBC 8.0 (4.5-11.0) X10^3/uL RBC 5.36 H (4.0-5.2) X10^6/uL Hgb 14.6 (12.0-16.0) g/dL Hct 43.1 (36-46) % MCV 80.3 (80-100) fL MCH 27.3 (26-34) PG MCHC 34.0 (30-36) % RDW 13.3 (11.6-14.8) % Plt Count 432 H (150-400) X10^3/uL Neut % (Auto) 61.6 (50-75) % Lymph % (Auto) 31.5 (25-40) % Loup % (Auto) 5.0 (3-14) % Eos % (Auto) 0.9 L (2-4) % Baso % (Auto) 1.0 (0-2) % Neut # (Auto) 4900 (3446-2785) /uL Lymph # (Auto) 2500 (8082-3748) /uL Loup # (Auto) 400 (0-900) /uL Eos # (Auto) 100 (0-450) /uL Baso # (Auto) 100 (0-100) /uL Sodium (137-145) mmol/L Potassium (3.4-5.1) mmol/L Chloride (98-107) mmol/L Carbon Dioxide (22-32) mmol/L BUN (7-17) mg/dL Creatinine (0.52-1.04) mg/dL Estimated GFR (>60) mL/min BUN/Creatinine Ratio (6-22) Glucose (70-100) mg/dL Calcium (8.4-10.2) mg/dL Total Bilirubin (0.2-1.3) mg/dL AST (14-36) IU/L ALT (<35) IU/L Alkaline Phosphatase (38-126) U/L Total Protein (6.3-8.2) g/dL Albumin (3.5-5.0) g/dL Globulin (1.7-4.1) g/dL Albumin/Globulin Ratio (1.0-2.8) TSH (0.47-4.68) uIU/mL Urine RBC 0-1/hpf (0-5/HPF) Urine WBC 0-1/hpf (0-5/HPF) Ur Squamous Epith Cells 0-1 /hpf (0-5/HPF) Amorphous Sediment 1+ Urine Bacteria Few (2-10) H (None) Ur Culture Indicated? Specimen cultured U Opiates 300ng/mL cut Negative (Negative) Ur Oxycodone Screen Negative (Negative) Urine Methadone Screen Negative (Negative) Ur Barbiturates Screen Negative (Negative) U Tricyclic Antidepress Negative (Negative) Ur Phencyclidine Scrn Negative (Negative) Ur Amphetamines Screen Negative (Negative) U Methamphetamines Scrn Negative (Negative) Ur MDMA Scrn (Ecstasy) Negative (Negative) U Benzodiazepines Scrn Negative (Negative) Urine Cocaine Screen Negative (Negative) U Marijuana (THC) Screen Negative (Negative) Ethyl Alcohol ( - 10) mg/dL 05/14/19 05/14/19 Range/Units 13:23 13:23 WBC (4.5-11.0) X10^3/uL RBC (4.0-5.2) X10^6/uL Hgb (12.0-16.0) g/dL Hct (36-46) % MCV (80-100) fL MCH (26-34) PG MCHC (30-36) % RDW (11.6-14.8) % Plt Count (150-400) X10^3/uL Neut % (Auto) (50-75) % Lymph % (Auto) (25-40) % Loup % (Auto) (3-14) % Eos % (Auto) (2-4) % Baso % (Auto) (0-2) % Neut # (Auto) (3619-5941) /uL Lymph # (Auto) (7566-7829) /uL Loup # (Auto) (0-900) /uL Eos # (Auto) (0-450) /uL Baso # (Auto) (0-100) /uL Sodium 137 (137-145) mmol/L Potassium 4.0 (3.4-5.1) mmol/L Chloride 106 (98-107) mmol/L Carbon Dioxide 22 (22-32) mmol/L BUN 12 (7-17) mg/dL Creatinine 0.68 (0.52-1.04) mg/dL Estimated GFR > 60.0 (>60) mL/min BUN/Creatinine Ratio 17.6 (6-22) Glucose 95 (70-100) mg/dL Calcium 9.5 (8.4-10.2) mg/dL Total Bilirubin 0.4 (0.2-1.3) mg/dL AST 25 (14-36) IU/L ALT 15 (<35) IU/L Alkaline Phosphatase 111 (38-126) U/L Total Protein 8.1 (6.3-8.2) g/dL Albumin 4.4 (3.5-5.0) g/dL Globulin 3.7 (1.7-4.1) g/dL Albumin/Globulin Ratio 1.2 (1.0-2.8) TSH 2.28 D (0.47-4.68) uIU/mL Urine RBC (0-5/HPF) Urine WBC (0-5/HPF) Ur Squamous Epith Cells (0-5/HPF) Amorphous Sediment Urine Bacteria (None) Ur Culture Indicated? U Opiates 300ng/mL cut (Negative) Ur Oxycodone Screen (Negative) Urine Methadone Screen (Negative) Ur Barbiturates Screen (Negative) U Tricyclic Antidepress (Negative) Ur Phencyclidine Scrn (Negative) Ur Amphetamines Screen (Negative) U Methamphetamines Scrn (Negative) Ur MDMA Scrn (Ecstasy) (Negative) U Benzodiazepines Scrn (Negative) Urine Cocaine Screen (Negative) U Marijuana (THC) Screen (Negative) Ethyl Alcohol < 10 ( - 10) mg/dL Urine Dip Bedside Urine Glucose Negative Bedside Urine Bilirubin - Negative Bedside Urine Ketone - Negative Urine Specific [place] 1.010 Bedside Urine Occult Blood +/- Bedside Urine pH 6.5 Bedside Urine Protein - Negative Bedside Urine Urobilinogen - Negative Bedside Urine Nitrite - Negative Bedside Urine Leukocytes + 70 Esterase Discharge Plan Departure Prescriptions: No Action oxybutynin chloride 5 mg tablet extended release 24hr 5 mg PO DAILY RF: 0 clonazepam 2 mg tablet 2 mg PO BID RF: 0 diphenhydramine HCl [Sleep Aid (diphenhydramine)] 50 mg Capsule 50 mg PO BEDTIME RF: 0 famotidine [Pepcid] 20 mg Tablet 20 mg PO DAILY RF: 0 Peyton-D 24 Hour 180-240 mg Tablet Extended Release 24 Hr 1 tab PO QAM RF: 0 <Deric Garita, DO - Last Filed: 05/14/19 21:44> Cosign ED Attending Cosignature Attestation: I was immediately available in the department for consultation. This documentation has been reviewed and I agree with assessment and plan. Supervised by Deric Shaver DO
[2019-05-14 13:49] LABS: Add Manual Diff / Slide Review NO; Basophils Absolute Auto 100 /uL (0-100); Eosinophils Absolute Auto 100 /uL (0-450); Eosinophils Percent Auto 0.9 % (2-4); Hematocrit 43.1 % (36-46); Hemoglobin 14.6 g/dL (12.0-16.0); Lymphocytes Absolute Auto 2500 /uL (1100-4500); Lymphocytes Percent Auto 31.5 % (25-40); Mean Corpuscular Hemoglobin 27.3 PG (26-34); Mean Corpuscular Volume 80.3 fL (80-100); Monocytes Absolute Auto 400 /uL (0-900); Neutrophils Absolute Auto 4900 /uL (1500-7000); Neutrophils Percent Auto 61.6 % (50-75); Platelet Count 432 X10^3/uL (150-400); Red Blood Cell Count 5.36 X10^6/uL (4.0-5.2); Red Cell Distribution Width 13.3 % (11.6-14.8)
[2019-05-14 13:52] LABS: Alanine Aminotransferase 15 IU/L (<35); Albumin 4.4 g/dL (3.5-5.0); Albumin Globulin Ratio 1.2 (1.0-2.8); Alkaline Phosphatase 111 U/L (38-126); Aspartate Aminotransferase 25 IU/L (14-36); BUN Creatinine Ratio 17.6 (6-22); Bilirubin Total 0.4 mg/dL (0.2-1.3); Blood Urea Nitrogen 12 mg/dL (7-17); Calcium 9.5 mg/dL (8.4-10.2); Carbon Dioxide 22 mmol/L (22-32); Chloride 106 mmol/L (98-107); Estimated Glomerular Filt Rate > 60.0 mL/min (>60); Ethanol (ETOH) < 10 mg/dL; Globulin 3.7 g/dL (1.7-4.1); Glucose 95 mg/dL (70-100); HEMOLYSIS < 15 (0-50); Sodium 137 mmol/L (137-145); Total Protein 8.1 g/dL (6.3-8.2)
[2019-05-14 14:21] VITALS: BP 111/72; PULSE 87; RESP 16; O2SAT 99
[2019-05-14 14:46] LABS: Thyroid Stimulating Hormone 2.28 uIU/mL (0.47-4.68)
[2019-05-14 14:51] LABS: UR Morphine/Opiate cutoff 300 Negative (Negative); Ur Creatinine Normal (Normal); Ur Specific Gravity Normal (Normal); Urine Amphetamines Negative (Negative); Urine Barbiturates Negative (Negative); Urine Benzodiazepines Negative (Negative); Urine Cocaine Negative (Negative); Urine MDMA Negative (Negative); Urine Methadone Negative (Negative); Urine Methamphetamines Negative (Negative); Urine Oxycodone Negative (Negative); Urine Phencyclidine Negative (Negative); Urine Tetrahydrocannabinol Negative (Negative); Urine Tricyclic Antidepressant Negative (Negative); Urine pH Normal (Normal)
[2019-05-14 14:53] LABS: Amorphous Sediment Urine 1+; Bacteria Urine Few (2-10); Culture Indicated Urine Specimen Cultured; RBC Urine 0-1/HPF (0-5/HPF); Squamous Epithelial Cell Urine 0-1 /HPF (0-5/HPF); WBC Urine 0-1/HPF (0-5/HPF)
[2019-05-14] MEDS: clonazePAM 0.5 MG TABLET 1 MG PO (19:48)
--- NOTE | 2019-05-14 20:10 | CM.SWNOTE ---
SENIOR TAX ACCOUNTANT Note SENIOR TAX ACCOUNTANT faxed clinicals to [facility] and called to follow up. [facility] informed SENIOR TAX ACCOUNTANT that there was no longer a bed available. SENIOR TAX ACCOUNTANT called [facility] and confirmed that bed was available. SENIOR TAX ACCOUNTANT checked in with patient, gave update regarding [facility], and confirmed that patient was open to [facility]. Patient agreed that she was open to hospitalization at [facility]. SENIOR TAX ACCOUNTANT faxed clinicals to [facility], and gave them a call-back number of [phone] to call with transport info.
[2019-05-14 20:19] VITALS: BP 116/68; PULSE 86; RESP 16; O2SAT 99
--- NOTE | 2019-05-14 20:38 | CM.SWNOTE ---
CLERK TRAVEL RESERVATIONS note CLERK TRAVEL RESERVATIONS checked in with patient at end of shift. CLERK TRAVEL RESERVATIONS informed patient that clinicals had been faxed down and [facility] had confirmed bed availability. SERGE Vivar
--- NOTE | 2019-05-14 21:15 | PC.NURSE ---
Received call from [facility]. Pt accepted, arrival time at 0200.
== END 2019-05-15 00:30 ==
PROVIDERS: Emergency Provider Nurse Practitioner; PCP Nurse Practitioner
DX: R45.851 Suicidal ideations (principal); F41.8 Other specified anxiety disorders; F42.9 Obsessive-compulsive disorder, unspecified; F43.10 Post-traumatic stress disorder, unspecified; F31.9 Bipolar disorder, unspecified
CPT/HCPCS: 36415; 80053; 80305; 80320; 81003; 81015; 84443; 85025; 87086; 99284

== ENCOUNTER 2019-08-23 16:59 | Emergency (ER) | payer OTHER, MEDICAID, SELFPAY ==
--- NOTE | 2019-08-23 17:14 | PC.NURSE ---
attempt to triage patient. Pt not in [facility].
[2019-08-23 17:28] VITALS: BP 129/68; PULSE 62; RESP 18; TEMP 37.1; O2SAT 97; BMI 44.1
--- NOTE | 2019-08-23 18:25 | ED_ITS ---
HPI - General Adult General Chief complaint: Abdominal Pain Stated complaint: Rt side pain Time Seen by Provider: 08/23/19 18:14 Source: patient Mode of arrival: Ambulatory Limitations: no limitations History of Present Illness HPI narrative: 34-year-old female here for evaluation of right-sided flank/chest discomfort. States that it started approximately 1 week ago when she was lifting up a corner of a bed to put something under the bedpost. She states she felt a ?pop? in the right side of her abdomen. Since that time she has had increasing pain in is now radiating to the right side of her back and up to her right armpit. Has tried anti-inflammatories and ice at home without improvement. Has some discomfort with taking big deep breaths. Has never had any symptoms like this in the past. Related Data Home Medications Medication Instructions Recorded Confirmed clonazepam 2 mg PO BID 05/06/19 05/06/19 diphenhydramine HCl [Sleep Aid 50 mg PO BEDTIME 05/06/19 05/06/19 (diphenhydramine)] famotidine [Pepcid] 20 mg PO DAILY 05/06/19 05/06/19 fexofenadine-pseudoephedrine 1 tab PO QAM 05/06/19 05/06/19 [Peyton-D 24 Hour] Previous Rx's Medication Instructions Recorded oxybutynin chloride 5 mg tablet 5 mg PO BID #60 tab 07/14/19 propranolol 20 mg tablet 20 mg PO TID #90 tab 07/16/19 tramadol 50 mg PO Q6H PRN #5 tab 08/23/19 Allergies Allergy/AdvReac Type Severity Reaction Status Date / Time hydrocodone [From VICODIN] Allergy Severe Rash and Verified 05/14/19 12:50 vomiting, trouble breathing. diazepam [From Valium] Allergy Intermediate hives Verified 05/14/19 12:50 sumatriptan [From IMITREX] Allergy Unknown Verified 05/14/19 12:50 Review of Systems Constitutional Constitutional: Denies fever(s) and Denies headache(s) ENT Ears, Nose, Mouth, and Throat: Denies headache(s) Cardiovascular Cardiovascular: Reports chest pain (Right-sided chest wall) and Reports dyspnea on exertion Respiratory Respiratory: Denies cough, Reports pain on inspiration and Reports dyspnea on exertion Gastrointestinal Gastrointestinal: Reports abdominal pain (Right upper quadrant) and Denies change in bowel habits Genitourinary Genitourinary: Denies dysuria Genitourinary: Denies dysuria Musculoskeletal Comments: Right-sided chest wall pain Integumentary/Breasts Skin/Breast: Denies lesions and Denies rash Neurologic Neurologic: Denies behavioral changes and Denies headache(s) Psychiatric Psychiatric: Denies behavioral changes Hematologic/Lymphatic Hematologic/Lymphatic: Denies easy bleeding and Denies easy bruising Allergic/Immunologic Allergic/Immunologic: Denies urticaria Patient History Medical History Morbid obesity with BMI of 45.0-49.9, adult (Inactive) Family History Grandmother Age: 88 COPD (chronic obstructive pulmonary disease) Arthritis Asthma Hypertension High cholesterol Mother Age: 55 Endometriosis Hypertension High cholesterol Grandmother Age: 79 COPD (chronic obstructive pulmonary disease) Social History Smoking Status: Former smoker Smoking Status: Former smoker alcohol intake frequency: holidays/special occasions only Alcohol type: beer Substance Use Type: does not use Exam Initial Vital Signs Initial Vital Signs: Vital Signs Temperature 98.8 F 08/23/19 17:28 Pulse Rate 62 08/23/19 17:28 Respiratory Rate 18 08/23/19 17:28 Blood Pressure 129/68 08/23/19 17:28 Pulse Oximetry 97 08/23/19 17:28 Const General: cooperative, comfortable and well developed Limitations: mental status not altered Chest Chest: No crepitus and tenderness (Right-sided chest wall) Resp Effort & Inspection: normal respiratory effort Auscultation: clear to auscultation bilaterally Cardio Rate: regular rate Rhythm: regular rhythm GI Inspection: non-distended Palpation: soft and tender (Right upper quadrant over the lower portion of the ribs) Skin Lesions: no lesions Rashes: no rashes Neuro General: patient alert and patient awake Cognition: normal cognition Speech: speech normal Extrem General: normal to inspection and capillary refill normal Psych Appearance: grossly normal and well kempt Course Orders Ordered: ED Orders 08/23/19 18:36 XR ribs RT min 3V w CXR1V Stat Vital Signs Vital signs: Vital Signs - 8 hr 08/23/19 17:28 08/23/19 19:32 Temperature 98.8 F Pulse Rate 62 52 L Respiratory Rate 18 Blood Pressure 129/68 122/67 Pulse Oximetry 97 99 Medical Decision Making Imaging Data Rib x-ray: Radiologist's Impression: [address] [address] XRay Report Signed Patient: Omaira Rodgers MMR#: [id number] : 1985Acct:[id number] Age/Sex: 34 / FDate of Service: 08/23/19 Loc: ED Accession Number: [id number] Procedure: XR ribs RT min 3V w CXR1V Ordering Provider: Justin Tobin D.O. PROCEDURE: XR RIBS RT MIN 3V W CXR 1V INDICATIONS: r lower anterior rib pain TECHNIQUE: 3 views of the right ribs were acquired, along with a single view chest. COMPARISON: None. FINDINGS: Surgical changes and devices: None. Bones and chest wall: No fractures or dislocations. No suspicious bony lesions. Overlying soft tissues appear unremarkable. Lungs and pleura: No pleural effusions or pneumothorax. Lungs appear clear. Mediastinum: Mediastinal contours appear normal. Heart size is normal. IMPRESSION: No visualized acute fracture or dislocation. However, if clinical concern and/or pain persist, short interval imaging followup in 7-10 days is recommended, as occult injury cannot be definitively excluded. Dictated by: Ruth Causey M.D. on 08/23/2019 at 18:51 Approved by: Ruth Causey M.D. on 08/23/2019 at 18:57 MDM Narrative Medical decision making narrative: No skin changes, no fractures noted on the rib x-ray. I do have low suspicion for fracture. Low suspicion for intra- abdominal surgical issues. Feel we can hold on further workup for now. I do suspect musculoskeletal etiology. Patient given return precautions and follow- up instructions. She expressed understanding and agreement. Discharge Plan Departure Patient Disposition: Home Clinical Impression: Right-sided chest wall pain Discharge Date/Time: 08/23/19 19:39 Activity Restrictions/Additional Instructions: Recommend that you continue with the Tylenol and the rest of your medications as directed. Contact your primary provider for a follow-up. Return to the emergency department for any new or worsening symptoms Prescriptions: New tramadol 50 mg tablet 50 mg PO Q6H PRN (Reason: pain) Qty: 5 RF: 0 No Action propranolol 20 mg tablet 20 mg PO TID Qty: 90 RF: 3 oxybutynin chloride 5 mg tablet 5 mg PO BID Qty: 60 RF: 1 clonazepam 2 mg tablet 2 mg PO BID RF: 0 diphenhydramine HCl [Sleep Aid (diphenhydramine)] 50 mg Capsule 50 mg PO BEDTIME RF: 0 famotidine [Pepcid] 20 mg Tablet 20 mg PO DAILY RF: 0 Peyton-D 24 Hour 180-240 mg Tablet Extended Release 24 Hr 1 tab PO QAM RF: 0 Referrals: Aditi Lu ARNP [Primary Care Provider] -
--- NOTE | 2019-08-23 18:36 | DI.RAD.S_ITS ---
PROCEDURE: XR RIBS RT MIN 3V W CXR 1V INDICATIONS: r lower anterior rib pain TECHNIQUE: 3 views of the right ribs were acquired, along with a single view chest. COMPARISON: None. FINDINGS: Surgical changes and devices: None. Bones and chest wall: No fractures or dislocations. No suspicious bony lesions. Overlying soft tissues appear unremarkable. Lungs and pleura: No pleural effusions or pneumothorax. Lungs appear clear. Mediastinum: Mediastinal contours appear normal. Heart size is normal. IMPRESSION: No visualized acute fracture or dislocation. However, if clinical concern and/or pain persist, short interval imaging followup in 7-10 days is recommended, as occult injury cannot be definitively excluded. Dictated by: Ruth Causey M.D. on 08/23/2019 at 18:51 Approved by: Ruth Causey M.D. on 08/23/2019 at 18:57
[2019-08-23 19:32] VITALS: BP 122/67; PULSE 52; O2SAT 99
== END 2019-08-23 19:39 | disposition home or self-care (01) ==
PROVIDERS: Emergency Provider Emergency Medicine; PCP Nurse Practitioner
DX: R07.89 Other chest pain (principal); R10.11 Right upper quadrant pain
CPT/HCPCS: 71101; 99281; 99283

== ENCOUNTER → 2019-12-23 14:00 | Outpatient (CLI) | payer OTHER, MEDICAID, SELFPAY ==
[2019-12-23 15:36] LABS: COVID19 -Nasal RAPID Negative (Negative)
== END ==
PROVIDERS: PCP Family Medicine; Visit Provider Physician Assistant
DX: Z03.818 Encounter for observation for suspected exposure to other biological agents ruled out (principal)
CPT/HCPCS: 87635

== ENCOUNTER 2020-01-08 15:32 | Emergency (ER) | payer OTHER, MEDICAID, SELFPAY ==
[2020-01-08 15:41] VITALS: BP 138/77; PULSE 98; RESP 15; TEMP 36.4; O2SAT 100; BMI 38.5
[2020-01-08 19:27] LABS: RBC Urine None Seen (0-5/HPF)
[2020-01-08 19:37] LABS: Squamous Epithelial Cell Urine 1-5 /HPF (0-5/HPF); WBC Urine 10-30/HPF (0-5/HPF)
[2020-01-08 19:38] LABS: Amorphous Sediment Urine 1+; Bacteria Urine Occasional (0-1); Culture Indicated Urine Specimen Cultured; Mucus Urine 1+ (Negative)
--- NOTE | 2020-01-08 19:58 | ED.URI ---
HPI - URI/Sore Throat <Kenia Delarosa CERTIFIED LOW VISION THERAPIST-BC - Last Filed: 01/08/20 20:20> General Chief Complaint: Upper Respiratory Symptoms Stated Complaint: PAIN IN EARS AND SINUS WOOZY Time Seen by Provider: 01/08/20 18:04 Source: patient Mode of arrival: Family Vehicle Limitations: no limitations History of Present Illness HPI Narrative: The patient is a 34-year-old female former smoker with history of sinus infections who presents with a chief complaint of sinus pressure and pain for at least 2 weeks. She states that she has used Sudafed, Flonase, and yaei-lug-jwbbwcq medications including Neti pot. She has denies any fevers, but complains of muscle aches and chills. She states she feels woozy at times. Also complains of urinary urgency frequency and dysuria. No fevers. No flank pain. She does complain sinus drip. Related Data Home Medications Medication Instructions Recorded Confirmed fexofenadine-pseudoephedrine 1 tab PO QAM 05/06/19 09/18/19 [Peyton-D 24 Hour] clonazepam 2 mg tablet 2 mg PO BID PRN 09/17/19 09/18/19 lamotrigine 25 mg tablet 25 mg PO ONCE tab 09/17/19 09/18/19 prazosin 2 mg capsule 2 mg PO BEDTIME 09/17/19 09/18/19 trazodone 50 mg tablet 50 mg PO DAILY 09/17/19 09/18/19 Previous Rx's Medication Instructions Recorded azithromycin 250 mg tablet See Rx Instructions PO .COMPLEX #6 09/17/19 tab oxybutynin chloride 5 mg tablet 5 mg PO TID #270 tab 09/23/19 propranolol 20 mg tablet 20 mg PO TID #270 tab 11/06/19 azithromycin See Rx Instructions .ROUTE 01/08/20 .COMPLEX #6 tab nitrofurantoin monohyd/m-cryst 100 mg PO BID 7 Days #14 cap 01/08/20 [Macrobid] Allergies Allergy/AdvReac Type Severity Reaction Status Date / Time hydrocodone [From VICODIN] Allergy Severe Rash and Verified 01/08/20 15:41 vomiting, trouble breathing. diazepam [From Valium] Allergy Intermediate hives Verified 01/08/20 15:41 sumatriptan [From IMITREX] Allergy Unknown Verified 01/08/20 15:41 doxycycline AdvReac Severe skin Verified 01/08/20 15:41 redness, migraine, upset stomach Review of Systems <CHAPO Gutierrez - Last Filed: 01/08/20 20:20> Review of Systems Narrative: GENERAL: Denies chills, fatigue, malaise, fever, sweats. HEENT: See HPI RESPIRATORY: Denies dyspnea, cough, wheezing, hemoptysis, sputum. CARDIOVASCULAR: Denies chest pain, palpitations, orthopnea, edema, GASTROINTESTINAL: Denies nausea, vomiting, abdominal pain, diarrhea, constipation, melena. : See HPI MUSCULOSKELETAL: denies weakness, joint pain, or bony pain SKIN: Denies rash, skin lesions, or other NEUROLOGIC: Denies weakness, headache, numbness, change in speech, confusion, seizures, incoordination. PSYCHIATRIC: No concerning psychosocial issues. 12 point review of systems is negative except for those stated above Patient History <CHAPO Gutierrez - Last Filed: 01/08/20 20:20> Medical History Morbid obesity with BMI of 45.0-49.9, adult Family History Grandmother Age: 88 COPD (chronic obstructive pulmonary disease) Arthritis Asthma Hypertension High cholesterol Mother Age: 55 Endometriosis Hypertension High cholesterol Grandmother Age: 79 COPD (chronic obstructive pulmonary disease) Social History Smoking Status: Former smoker Smoking Status: Former smoker tobacco type: cigarettes alcohol intake frequency: 0-2 drinks per day Alcohol type: beer Substance Use Type: does not use Exam <CHAPO Gutierrez - Last Filed: 01/08/20 20:20> Narrative Exam Narrative: GENERAL: This is a well-nourished, well-developed patient, in no acute distress HEAD: Atraumatic. Normocephalic. No temporal or scalp tenderness. EYES: Pupils equal round and reactive. Extraocular motions intact. No scleral icterus. No injection or drainage. ENT: Nose without bleeding, purulent drainage or septal hematoma. Wearing a mask Uvula midline. Airway patent. Bilateral TMs pearly thompson sinus tenderness to palpation. NECK: Trachea midline. No JVD or lymphadenopathy. Supple, nontender, no meningeal signs. CARDIOVASCULAR: Regular rate and rhythm RESPIRATORY: Clear to auscultation. Breath sounds equal bilaterally. No wheezes, rales, or rhonchi. No cough. No increased respiratory effort. No accessory muscle use. Speaking full sentences. GASTROINTESTINAL: Abdomen soft, non-tender, nondistended. No hepato-splenomegaly, or palpable masses. No guarding. EXTREMITIES: No clubbing, cyanosis, or edema. No joint tenderness, effusion, or edema noted. BACK: Nontender without deformity or crepitance. No flank tenderness. NEURO: AOx3. SKIN: No rash or erythema on visible skin Initial Vital Signs Initial Vital Signs: Vital Signs Temperature 97.5 F L 01/08/20 15:41 Pulse Rate 98 H 01/08/20 15:41 Respiratory Rate 15 01/08/20 15:41 Blood Pressure 138/77 01/08/20 15:41 Pulse Oximetry 100 01/08/20 15:41 <Kenia Thomas DO - Last Filed: 01/12/20 08:58> Initial Vital Signs Initial Vital Signs: Vital Signs Temperature 97.5 F L 01/08/20 15:41 Pulse Rate 98 H 01/08/20 15:41 Respiratory Rate 15 01/08/20 15:41 Blood Pressure 138/77 01/08/20 15:41 Pulse Oximetry 100 01/08/20 15:41 Scores <CHAPO Gutierrez - Last Filed: 01/08/20 20:20> GCS [place] coma scale eye opening: Spontaneous Rosie coma scale verbal response: Orientated [place] coma scale motor response: Obey commands [place] coma scale total score: 15 Course <CHAPO Gutierrez - Last Filed: 01/08/20 20:20> Orders Ordered: ED Orders 01/08/20 18:29 Glucose Stat 01/08/20 19:26 Urine Culture Stat Urine Microscopic Stat Vital Signs Vital signs: Vital Signs - 8 hr 01/08/20 15:41 01/08/20 20:05 Temperature 97.5 F L Pulse Rate 98 H 80 Respiratory Rate 15 18 Blood Pressure 138/77 122/74 Pulse Oximetry 100 100 <Kenia Thomas DO - Last Filed: 01/12/20 08:58> Orders Ordered: ED Orders 01/08/20 18:29 Glucose Stat 01/08/20 19:26 Urine Culture Stat Urine Microscopic Stat Vital Signs Vital signs: Vital Signs - 8 hr 01/08/20 15:41 01/08/20 20:05 Temperature 97.5 F L Pulse Rate 98 H 80 Respiratory Rate 15 18 Blood Pressure 138/77 122/74 Pulse Oximetry 100 100 MDM - URI/Sore Throat <CHELSIE Gutierrez-BC - Last Filed: 01/08/20 20:20> Lab Data Attestation: I reviewed the patient's lab results. Labs: Lab Results 01/08/20 Range/Units 19:26 Urine RBC None seen (0-5/HPF) Urine WBC 10-30/hpf H (0-5/HPF) Ur Squamous Epith Cells 1-5 /hpf (0-5/HPF) Amorphous Sediment 1+ Urine Bacteria Occasional (0-1) (None) Urine Mucus 1+ H (Negative) Ur Culture Indicated? Specimen cultured Point of Care Testing Test Results Negative Glucose POC 77 Urine Dip Bedside Urine Glucose Negative Bedside Urine Bilirubin - Negative Bedside Urine Ketone - Negative Urine Specific [place] 1.025 Bedside Urine Occult Blood - Negative Bedside Urine pH 6.0 Bedside Urine Protein - Negative Bedside Urine Urobilinogen - Negative Bedside Urine Nitrite - Negative Bedside Urine Leukocytes + 70 Esterase MDM Narrative Medical decision making narrative: The patient is a 34-year-old female who presents with multiple complaints including sinus pain and pressure for the past 2 weeks as well as urinary complaints. She states this feels similar to previous sinus infection and urinary tract infection. She has sinus tenderness on exam, has been using ezab-wtl-cmevqno medications for the past 10 days. Thus we elected to treat her for acute bacterial sinusitis. She has not had antibiotics in over 3 months. I discussed use of Augmentin, but patient states that she is resistant to Augmentin and allergic to doxycycline. She requested Zithromax, I discussed that this is not supported by research that she states that works for her and she would like to proceed with. Will use nitrofurantoin for urinary tract infection at this time. Patient was concerned about blood sugar elevation as she has a history thereof that is diet controlled his blood sugar today is 77. Discussed follow-up with primary care provider in the next few days as well as come back to the ER for acute concerns. Patient has no questions or concerns upon discharge and states understanding return precautions as well as follow-up care. <Kenia Nathalia Thomas, - Last Filed: 01/12/20 08:58> Lab Data Labs: Lab Results 01/08/20 Range/Units 19:26 Urine RBC None seen (0-5/HPF) Urine WBC 10-30/hpf H (0-5/HPF) Ur Squamous Epith Cells 1-5 /hpf (0-5/HPF) Amorphous Sediment 1+ Urine Bacteria Occasional (0-1) (None) Urine Mucus 1+ H (Negative) Ur Culture Indicated? Specimen cultured Point of Care Testing Test Results Negative Glucose POC 77 Urine Dip Bedside Urine Glucose Negative Bedside Urine Bilirubin - Negative Bedside Urine Ketone - Negative Urine Specific [place] 1.025 Bedside Urine Occult Blood - Negative Bedside Urine pH 6.0 Bedside Urine Protein - Negative Bedside Urine Urobilinogen - Negative Bedside Urine Nitrite - Negative Bedside Urine Leukocytes + 70 Esterase Discharge Plan Departure Patient Disposition: Home Clinical Impression: Acute sinus infection Qualifiers: Sinusitis location: other Recurrence: recurrent Qualified Code(s): J01.81 - Other acute recurrent sinusitis Urinary tract infection Qualifiers: Urinary tract infection type: site unspecified Hematuria presence: without hematuria Qualified Code(s): N39.0 - Urinary tract infection, site not specified Instructions: Sinusitis (Alternative Therapy), DI for Sinusitis, DI for Urinary Tract Infection (UTI) Activity Restrictions/Additional Instructions: Thank you for trusting us with your care today. As discussed, we are treating the for an acute sinus infection and a urinary tract infection. I sent these prescriptions to [facility]. Please take them with probiotic or yogurt to help prevent antibiotic associated side effects such as diarrhea or yeast infection Please follow-up with primary care provider in the next few days. Please come back to emergency department for any acute continued. Prescriptions: New azithromycin 250 mg tablet See Rx Instructions .ROUTE .COMPLEX Qty: 6 RF: 0 nitrofurantoin monohyd/m-cryst [Macrobid] 100 mg capsule 100 mg PO BID 7 Days Qty: 14 RF: 0 No Action propranolol 20 mg tablet 20 mg PO TID Qty: 270 RF: 3 oxybutynin chloride 5 mg tablet 5 mg PO TID Qty: 270 RF: 1 trazodone 50 mg tablet 50 mg PO DAILY RF: 0 prazosin 2 mg capsule 2 mg PO BEDTIME RF: 0 lamotrigine 25 mg tablet 25 mg PO ONCE RF: 0 azithromycin 250 mg tablet See Rx Instructions PO .COMPLEX Qty: 6 RF: 0 Peyton-D 24 Hour 180-240 mg Tablet Extended Release 24 Hr 1 tab PO QAM RF: 0 clonazepam 2 mg tablet 2 mg PO BID PRNRF: 0 Referrals: Ez Sorenson DO [Primary Care Provider] - <Kenia Thomas DO - Last Filed: 01/12/20 08:58> Cosign ED Attending Cosignature Attestation: I was immediately available in the department for consultation. This documentation has been reviewed and I agree with assessment and plan. Supervised by Kenia Thomas DO
[2020-01-08 20:05] VITALS: BP 122/74; PULSE 80; RESP 18; O2SAT 100
== END 2020-01-08 20:17 | disposition home or self-care (01) ==
PROVIDERS: Emergency Provider Nurse Practitioner Family; PCP Family Medicine
DX: J01.81 Other acute recurrent sinusitis (principal); N39.0 Urinary tract infection, site not specified; R30.0 Dysuria
CPT/HCPCS: 81003; 81015; 81025; 82962; 87086; 99282

== ENCOUNTER → 2020-10-27 15:35 | Outpatient (CLI) | payer OTHER, MEDICAID, SELFPAY ==
[2020-10-27 18:12] LABS: Add Manual Diff / Slide Review NO; Basophils Absolute Auto 100 /uL (0-100); Basophils Percent Auto 1.1 % (0-2); Eosinophils Absolute Auto 100 /uL (0-450); Eosinophils Percent Auto 0.8 % (2-4); Hemoglobin 14.5 g/dL (12.0-16.0); Lymphocytes Absolute Auto 2700 /uL (1100-4500); Lymphocytes Percent Auto 29.5 % (25-40); Mean Corpuscular HGB Conc 33.7 % (30-36); Mean Corpuscular Hemoglobin 27.6 PG (26-34); Mean Corpuscular Volume 81.9 fL (80-100); Monocytes Absolute Auto 600 /uL (0-900); Monocytes Percent Auto 7.1 % (3-14); Neutrophils Absolute Auto 5500 /uL (1500-7000); Neutrophils Percent Auto 61.5 % (50-75); Platelet Count 346 X10^3/uL (150-400); Red Blood Cell Count 5.26 X10^6/uL (4.0-5.2); Red Cell Distribution Width 13.5 % (11.6-14.8)
[2020-10-27 18:23] LABS: Alanine Aminotransferase 14 IU/L (<35); Albumin 4.6 g/dL (3.5-5.0); Albumin Globulin Ratio 1.4 (1.0-2.8); Alkaline Phosphatase 92 U/L (38-126); Aspartate Aminotransferase 25 IU/L (14-36); BUN Creatinine Ratio 17.2 (6-22); Bilirubin Total 0.4 mg/dL (0.2-1.3); Blood Urea Nitrogen 11 mg/dL (7-17); Calcium 10.3 mg/dL (8.4-10.2); Carbon Dioxide 22 mmol/L (22-32); Chloride 109 mmol/L (98-107); Estimated Glomerular Filt Rate > 60.0 mL/min (>60); Globulin 3.4 g/dL (1.7-4.1); Glucose 92 mg/dL (70-100); HEMOLYSIS < 15 (0-50); Potassium 4.3 mmol/L (3.4-5.1); Sodium 141 mmol/L (137-145)
[2020-10-27 18:58] LABS: TSH w/ Reflex to FT4 2.17 uIU/mL (0.47-4.68)
== END ==
PROVIDERS: PCP Family Medicine; Referring Provider Family Medicine; Visit Provider Family Medicine
DX: R00.1 Bradycardia, unspecified (principal); R42 Dizziness and giddiness; F41.9 Anxiety disorder, unspecified
CPT/HCPCS: 36415; 80053; 84443; 85025

== ENCOUNTER → 2021-03-02 11:23 | Outpatient (CLI) | payer OTHER, MEDICAID, SELFPAY ==
[2021-03-02 12:28] LABS: COVID19 -Nasal RAPID Negative (Negative)
== END ==
PROVIDERS: PCP Family Medicine; Referring Provider Physician Assistant; Visit Provider Physician Assistant
DX: Z20.822 Contact with and (suspected) exposure to COVID-19 (principal)
CPT/HCPCS: 87635

== ENCOUNTER → 2022-04-04 08:46 | Outpatient (CLI) | payer OTHER, MEDICAID, SELFPAY ==
[2022-04-04 10:22] LABS: Add Manual Diff / Slide Review NO; Basophils Absolute Auto 100 /uL (0-100); Basophils Percent Auto 0.8 % (0-2); Eosinophils Absolute Auto 100 /uL (0-450); Hematocrit 45.5 % (36-46); Hemoglobin 14.9 g/dL (12.0-16.0); Lymphocytes Absolute Auto 3100 /uL (1100-4500); Lymphocytes Percent Auto 31.2 % (25-40); Mean Corpuscular HGB Conc 32.7 % (30-36); Mean Corpuscular Hemoglobin 26.8 PG (26-34); Mean Corpuscular Volume 81.9 fL (80-100); Monocytes Absolute Auto 500 /uL (0-900); Monocytes Percent Auto 5.3 % (3-14); Neutrophils Absolute Auto 6200 /uL (1500-7000); Neutrophils Percent Auto 61.7 % (50-75); Platelet Count 278 X10^3/uL (150-400); Red Blood Cell Count 5.56 X10^6/uL (4.0-5.2); Red Cell Distribution Width 13.4 % (11.6-14.8); White Blood Cell Count 10.1 X10^3/uL (4.5-11.0)
[2022-04-04 10:40] LABS: Alanine Aminotransferase 20 IU/L (<35); Albumin 4.3 g/dL (3.5-5.0); Albumin Globulin Ratio 1.3 (1.0-2.8); Alkaline Phosphatase 96 U/L (38-126); Aspartate Aminotransferase 22 IU/L (14-36); BUN Creatinine Ratio 16.2 (6-22); Bilirubin Total 0.4 mg/dL (0.2-1.3); Blood Urea Nitrogen 11 mg/dL (7-17); Calcium 9.3 mg/dL (8.4-10.2); Carbon Dioxide 22 mmol/L (22-32); Chloride 106 mmol/L (98-107); Cholesterol 220 mg/dL (140-199); Estimated Glomerular Filt Rate > 60 mL/min (>60); Globulin 3.2 g/dL (1.7-4.1); Glucose 100 mg/dL (70-100); HDL Cholesterol 41 mg/dL (40-60); HEMOLYSIS < 15 (0-50); LDL Cholesterol Calculated 156 mg/dL (<100); Potassium 4.1 mmol/L (3.4-5.1); Sodium 140 mmol/L (137-145); Total Protein 7.5 g/dL (6.3-8.2); Triglycerides 116 mg/dL (35-150)
== END ==
PROVIDERS: PCP Family Medicine; Referring Provider Family Medicine; Visit Provider Family Medicine
DX: E66.01 Morbid (severe) obesity due to excess calories (principal); E78.5 Hyperlipidemia, unspecified; F31.61 Bipolar disorder, current episode mixed, mild; F43.10 Post-traumatic stress disorder, unspecified; R53.83 Other fatigue; Z68.41 Body mass index [BMI] 40.0-44.9, adult
CPT/HCPCS: 36415; 80053; 80061; 85025

== ENCOUNTER → 2023-06-19 08:26 | Outpatient (CLI) | payer OTHER, MEDICAID, SELFPAY ==
[2023-06-19 09:43] LABS: Add Manual Diff / Slide Review NO; Basophils Absolute Auto 100 /uL (0-100); Basophils Percent Auto 0.8 % (0-2); Eosinophils Absolute Auto 100 /uL (0-450); Eosinophils Percent Auto 1.1 % (2-4); Hematocrit 41.6 % (36-46); Hemoglobin 13.9 g/dL (12.0-16.0); Lymphocytes Absolute Auto 3300 /uL (1100-4500); Lymphocytes Percent Auto 33.8 % (25-40); Mean Corpuscular HGB Conc 33.5 % (30-36); Mean Corpuscular Hemoglobin 27.3 PG (26-34); Mean Corpuscular Volume 81.5 fL (80-100); Monocytes Absolute Auto 500 /uL (0-900); Monocytes Percent Auto 5.2 % (3-14); Neutrophils Absolute Auto 5700 /uL (1500-7000); Neutrophils Percent Auto 59.1 % (50-75); Platelet Count 341 X10^3/uL (150-400); Red Blood Cell Count 5.11 X10^6/uL (4.0-5.2); Red Cell Distribution Width 13.3 % (11.6-14.8); White Blood Cell Count 9.7 X10^3/uL (4.5-11.0)
[2023-06-19 09:47] LABS: Hemoglobin A1C% w Est Avg Glu 5.2 % (4.0-6.0)
[2023-06-19 10:00] LABS: Alanine Aminotransferase 23 IU/L (<35); Albumin 4.3 g/dL (3.5-5.0); Albumin Globulin Ratio 1.4 (1.0-2.8); Alkaline Phosphatase 100 U/L (38-126); Aspartate Aminotransferase 26 IU/L (14-36); BUN Creatinine Ratio 11.4 (6-22); Bilirubin Total 0.6 mg/dL (0.2-1.3); Blood Urea Nitrogen 8 mg/dL (7-17); Calcium 9.1 mg/dL (8.4-10.2); Carbon Dioxide 21 mmol/L (22-32); Chloride 109 mmol/L (98-107); Cholesterol 204 mg/dL (140-199); Estimated Glomerular Filt Rate > 60 mL/min (>60); Glucose 93 mg/dL (70-100); HDL Cholesterol 42 mg/dL (40-60); HEMOLYSIS < 15 (0-50); LDL Cholesterol Calculated 143 mg/dL (<100); Potassium 3.9 mmol/L (3.4-5.1); Sodium 140 mmol/L (137-145); Total Protein 7.3 g/dL (6.3-8.2); Triglycerides 96 mg/dL (35-150)
[2023-06-20 06:18] LABS: Apolipoprotein B 108 mg/dL (<90)
== END ==
LOC: LAB 08:27
PROVIDERS: PCP Family Medicine; Referring Provider Family Medicine; Visit Provider Family Medicine
DX: E66.01 Morbid (severe) obesity due to excess calories (principal); E78.5 Hyperlipidemia, unspecified; R00.1 Bradycardia, unspecified; R53.83 Other fatigue; Z68.41 Body mass index [BMI] 40.0-44.9, adult
CPT/HCPCS: 36415; 80053; 80061; 82172; 83036; 85025

== ENCOUNTER → 2024-03-11 08:49 | Outpatient (CLI) | payer OTHER, SELFPAY ==
[2024-03-11 09:31] LABS: Add Manual Diff / Slide Review NO; Basophils Absolute Auto 100 /uL (0-100); Basophils Percent Auto 0.9 % (0-2); Eosinophils Absolute Auto 100 /uL (0-450); Eosinophils Percent Auto 1.2 % (2-4); Hematocrit 42.8 % (36-46); Hemoglobin 14.7 g/dL (12.0-16.0); Lymphocytes Absolute Auto 2600 /uL (1100-4500); Lymphocytes Percent Auto 27.2 % (25-40); Mean Corpuscular HGB Conc 34.4 % (30-36); Mean Corpuscular Volume 81.5 fL (80-100); Monocytes Absolute Auto 500 /uL (0-900); Monocytes Percent Auto 5.3 % (3-14); Neutrophils Absolute Auto 6300 /uL (1500-7000); Neutrophils Percent Auto 65.4 % (50-75); Platelet Count 396 X10^3/uL (150-400); Red Blood Cell Count 5.25 X10^6/uL (4.0-5.2); Red Cell Distribution Width 13.4 % (11.6-14.8); White Blood Cell Count 9.6 X10^3/uL (4.5-11.0)
[2024-03-11 09:38] LABS: Hemoglobin A1C% w Est Avg Glu 5.1 % (4.0-6.0)
[2024-03-11 09:46] LABS: HEMOLYSIS < 15 (0-50); Iron 84 ug/dL (37-170)
[2024-03-11 09:51] LABS: Alanine Aminotransferase 35 IU/L (<35); Albumin 4.5 g/dL (3.5-5.0); Albumin Globulin Ratio 1.5 (1.0-2.8); Alkaline Phosphatase 97 U/L (38-126); Aspartate Aminotransferase 38 IU/L (14-36); BUN Creatinine Ratio 14.4 (6-22); Bilirubin Total 0.5 mg/dL (0.2-1.3); Blood Urea Nitrogen 13 mg/dL (7-17); Calcium 9.5 mg/dL (8.4-10.2); Carbon Dioxide 17 mmol/L (22-32); Chloride 108 mmol/L (98-107); Cholesterol 240 mg/dL (140-199); Estimated Glomerular Filt Rate > 60 mL/min (>60); Glucose 102 mg/dL (70-100); HDL Cholesterol 49 mg/dL (40-60); HEMOLYSIS < 15 (0-50); LDL Cholesterol Calculated 166 mg/dL (<100); Magnesium 1.9 mg/dL (1.6-2.3); Sodium 137 mmol/L (137-145); Total Protein 7.5 g/dL (6.3-8.2); Triglycerides 123 mg/dL (35-150)
[2024-03-11 09:53] LABS: Erythrocyte Sedimentation Rate 10 MM/HR (0-20)
[2024-03-11 09:58] LABS: Percent Iron Saturation 31 % (15-50); Total Iron Binding Capacity 272 ug/dL (265-497); Transferrin 255 mg/dL (206-381)
[2024-03-11 10:05] LABS: Vitamin D 25 Hydroxy (D3) 53.2 ng/mL (30.0-100.0)
[2024-03-11 10:18] LABS: TSH w/ Reflex to FT4 2.98 uIU/mL (0.47-4.68)
[2024-03-11 10:26] LABS: Ferritin 108 ng/mL (6-137)
[2024-03-11 10:53] LABS: Folate > 20.0 ng/mL (2.76-20.0); Vitamin B12 403 pg/mL (239-931)
[2024-03-12 01:11] LABS: HBsAg Screen Negative (Negative); Hepatitis A Antibody IgM Negative (Negative); Hepatitis B Core Antibody IgM Negative (Negative); Hepatitis C Antibody Non Reactive (Non Reactive)
[2024-03-12 04:11] LABS: Apolipoprotein B 126 mg/dL (<90)
[2024-03-12 05:36] LABS: RPR Screen Non Reactive (Non Reactive)
== END ==
PROVIDERS: PCP Family Medicine; Referring Provider Family Medicine; Visit Provider Family Medicine
DX: E66.01 Morbid (severe) obesity due to excess calories (principal); Z68.41 Body mass index [BMI] 40.0-44.9, adult; F31.9 Bipolar disorder, unspecified; E78.5 Hyperlipidemia, unspecified; F41.9 Anxiety disorder, unspecified; F84.0 Autistic disorder
CPT/HCPCS: 36415; 80053; 80061; 80074; 82172; 82306; 82607; 82728; 82746; 83036; 83540; 83550; 83735; 84443; 85025; 85651; 86592

== ENCOUNTER → 2024-05-06 10:28 | Outpatient (CLI) | payer OTHER, SELFPAY ==
[2024-05-06 11:31] LABS: Alanine Aminotransferase 33 IU/L (<35); Albumin 4.4 g/dL (3.5-5.0); Albumin Globulin Ratio 1.4 (1.0-2.8); Alkaline Phosphatase 110 U/L (38-126); Aspartate Aminotransferase 30 IU/L (14-36); BUN Creatinine Ratio 13.3 (6-22); Bilirubin Total 0.5 mg/dL (0.2-1.3); Blood Urea Nitrogen 10 mg/dL (7-17); Calcium 9.6 mg/dL (8.4-10.2); Carbon Dioxide 17 mmol/L (22-32); Chloride 108 mmol/L (98-107); Cholesterol 229 mg/dL (140-199); Estimated Glomerular Filt Rate > 60 mL/min (>60); Globulin 3.1 g/dL (1.7-4.1); Glucose 102 mg/dL (70-100); HDL Cholesterol 51 mg/dL (40-60); HEMOLYSIS < 15 (0-50); LDL Cholesterol Calculated 147 mg/dL (<100); Potassium 4.3 mmol/L (3.4-5.1); Sodium 138 mmol/L (137-145); Total Protein 7.5 g/dL (6.3-8.2); Triglycerides 157 mg/dL (35-150)
== END ==
PROVIDERS: PCP Family Medicine; Referring Provider Family Medicine; Visit Provider Family Medicine
DX: R74.8 Abnormal levels of other serum enzymes (principal); E78.5 Hyperlipidemia, unspecified
CPT/HCPCS: 36415; 80053; 80061

== ENCOUNTER 2024-06-01 06:13 | Day surgery (SDC) | payer OTHER, SELFPAY ==
[2024-05-25 13:58] VITALS: BMI 46.0
[2024-06-01] VITALS (14 sets, daily range): BP systolic 111–157; BP diastolic 62–96; PULSE 76–110; RESP 12–20; TEMP 36.1–37.6; O2SAT 96–100; BMI 46.0
--- NOTE | 2024-06-01 | PATH_ITS ---
[facility] Accession Number: [id number] No. of containers..01 Tissue . 01 Material submitted: . uterus - CERVIX,UTERUS,BILATERAL FALLOPIAN TUBES . 01 Diagnosis: CERVIX, UTERUS, AND BILATERAL FALLOPIAN TUBES, HYSTERECTOMY AND BILATERAL SALPINGECTOMY: Inactive endometrium. Unremarkable cervix. Complete cross-section of bilateral fimbriated fallopian tubes with a minute focus of benign remnants. No evidence of malignancy. MRV 06/03/2024 1653 Local . 01 Comment: As part of ongoing quality assurance tester, selected slide from this case (A5) is also reviewed by Dr. Soraida Tarango, who agrees with the interpretation. . 01 Electronically signed: . Chiquita Prince MD, Pathologist NPI- [id number] . 01 Gross description: . Received in formalin with two identifiers and cervix, uterus, bilateral fallopian tubes, is an intact uterus (32 grams, 6.0 cm superior to inferior, 4.1 cm medial to lateral, 2.5 cm anterior to posterior), with attached cervix (3.0 x 3.0 cm), attached left fallopian tube (7.2 x 0.5 cm), and detached right fallopian tube (5.4 x 0.5 cm), with no additional adnexa. . The ectocervix is watson and granular with a slit-like os 0.7 cm in diameter. The anterior paracervical margin is inked blue, the posterior paracervical margin is inked black. The serosa is watson and smooth with no lesions identified. . The endocervical canal has watson herringbone mucosa and measures 2.2 cm in length. The endometrial cavity is 1.6 cm from cornu to cornu, and 3.1 cm in length with pink velvety endometrium that averages 0.1 cm thick. The myometrium is watson and mainly trabecular up to 1.2 cm in maximum thickness with no lesions identified. . Both tubes have violaceous, smooth serosa with no cysts identified. The lumen are stellate and unremarkable. . Swimming Pool Maintenance sections are submitted as follows: A1: Anterior cervix. A2: Posterior cervix. A3: Anterior full thickness section. A4: Posteiror full thickness section. A5: Left fallopian tube to include one-half of bisected fimbriae and cross-sections. A6: Right fallopian tube to include one-half of bisected fimbriae and cross-sections. ([id number]) /KLAUS 06/02/2024 0910 Local . 01 Pathologist provided ICD-10: N93.9, Z92.29, N94.4 . 01 CPT . 256754 Specimen Comment: A courtesy copy of this report has been sent to [facility] Pathology Performed at: [address] [address], [place], [place] [id number] MD José Miguel Watts MD Phone: [phone]
[2024-06-01] MEDS: ACETAMINOPHEN IV 1,000 MG/100 ML VIAL 400 MG IV (07:01)
[2024-06-01] MEDS: SCOPOLAMINE 1 PATCH TOP (07:02)
[2024-06-01] MEDS: LACTATED RINGERS 1,000 ML 42 ML IV ×2 (07:04→10:02)
--- NOTE | 2024-06-01 07:11 | PM.PREOP ---
Pre-operative Note Interval Note History & Physical reviewed/Exam performed by Physician: Yes Changes to H&P: No ASA Class (for procedural sedation): III
[2024-06-01] MEDS: CEFAZOLIN VIAL 3 GM in SODIUM CHLORIDE 0.9% 100 ML IV (08:00)
--- NOTE | 2024-06-01 08:19 | SUR.OPER ---
Lithotomy on padded OR bed. [place] Pad Positioner under torso. Head on pillow, arms padded and tucked at sides. Legs secured in padded yellow fins stirrups.
[2024-06-01] MEDS: BUPIVACAINE 0.25% W/ EPI 30 ML VIAL INJ (08:28)
--- NOTE | 2024-06-01 09:48 | PM.OP.1 ---
Operative Date/Time/Diagnoses Date of procedure: 06/01/24 Time of procedure: 09:48 Pre-op diagnosis: AUB Post-op diagnosis: same Procedure & Clinicians Procedure: total laparoscopic hysterectomy Same procedure as scheduled: Yes Indications: AUB Surgeon: Chole Mireles Motor Vehicle Compliance Analyst: Irena Dorantes Click Yes if Unassisted: No Anesthesia Type: General Operative Notes Closure Type: primary Specimen(s): other (uterus, cervix, bilateral fallopian tubes ) Estimated Blood Loss (mL): 75 Blood products transfused: none Procedure in detail: The patient was taken to the operating room, placed on the operating table in the supine position and intubated with ETT.? The patient was then placed in the lithotomy position with her legs in Harsh stirrups.? The patient was then examined under anesthesia with the above findings, then prepped and draped in a sterile fashion.? A flores catheter was placed.? Time out was performed. A sterile speculum was inserted into the vagina.? The anterior cervix was grasped with single tooth tenaculum and under gentle traction the uterus was sounded to 6cm.? The small V-care manipulator was placed in the standard fashion and the balloon was inflated. The tenaculum was removed from the cervix and the green colpotomy cup was placed flush against the cervix/vaginal apex.? The speculum was removed from the vagina.? Gloves were changed and attention was then turned to the abdominal portion of the case. A 5mm incision was made infraumbilically and abdominal entry was achieved under direct visualization using the 5mm VisaPort trocar.? Abdomen was insufflated to 15mmHg.? Two lateral 5-mm ports were placed in a similar manner under direct visualization.? The uterus was anteverted and abdominal survey was noted with findings as noted above; incidental uterine perforation at fundus with Vcare noted - balloon deflated and manipulator withdrawn into the uterine cavity at which time balloon was re-inflated without noted bleeding or additional iatrogenic injury. The omental adhesion to the left lateral abdominal side wall was lysed using the Powerseal under direct visualization. With pentecostalism of normal anatomy a second L lateral 5mm port was placed under direct visualization for purposes of intracoporeal laparoscopic suturing. Attention was turned first to the left adnexa. The distal left tube was grasped, elevated and dissected away from the mesosalpinx using the PowerSeal to the level of the cornua. The dissection was then carried down using the PowerSeal device so as to divide the utero-ovarian ligament and the round ligament with blunt and sharp dissection of the broad down to the level of the uterine artery. The uterine artery was then skeletonized after development of a bladder flap, coagulated, and divided. Once hemostasis was assured on the left side attention was turned to the right and the right fallopian tube, mesosalpinx, round ligament, and broad ligament were dissected in a fashion exactly the same as it had been on the left. The right uterine artery was then visualized after skeletonization and coagulated and divided. The uterus was seen to shaila after coagulation of both uterine arteries and the cup was identified through the vaginal muscularis at its insertion with the body of the cervix.? Under direct visualization monopolar cut energy was applied and the colpotomy was made using the the green cervical colpotomy cup as a guide with separation of the uterus and cervix from the vagina. The wound bed was inspected and noted to be hemostatic off of tension.? The uterine manipulator and specimen were removed en bloc via the vagina under direct visualization and passed off the field for permanent study. The 2-0 stratafix suture was introduced via the vagina under direct visualization and grasped using atraumatic grasper and withdrawn into the abdomen. A sterile glove packed with sterile sponge was then placed in vagina to achieve pneumatic seal and gloves were changed. A punctate vessel along the posterior peritoneal aspect of the cuff was noted to be bleeding and coagulated using PowerSeal with noted hemostasis thereafter. The vaginal cuff was laparoscopically sutured closed using the Stratafix in a running fashion. The suture was cut at the level of incision and needle with remaining suture remnant was withdrawn via the laparoscopic trocar under direct visualization without difficulty. An inadvertent laceration of a R ovarian functional cyst was noted to be hemostatic. All wound beds were inspected, suction irrigated and noted to be hemostatic. PerClot was placed along the vaginal cuff for additional hemostasis prophylaxis. The pneumoperitoneum was vented and trocars were removed under direct visualization.? The skin of all incisions was closed with 4-0 monocryl in a subcuticular fashion followed by application of dermabond. All counts were correct x2.? All instruments were removed from the vagina and moistened vaginal packing was placed.? The patient had her legs taken out of stirrups and was awoken from anesthesia, extubated and taken to PACU in stable condition. Complications: none Post-operative Condition: stable Disposition: PACU Plan for aftercare: anticipate dc to home POD1 pending clinical recovery
[2024-06-01] MEDS: OXYCODONE IR 5 MG TABLET PO (10:03)
[2024-06-01 10:09] LABS: Add Manual Diff / Slide Review NO; Basophils Absolute Auto 0 /uL (0-100); Basophils Percent Auto 0.3 % (0-2); Eosinophils Absolute Auto 100 /uL (0-450); Eosinophils Percent Auto 0.5 % (2-4); Hematocrit 38.7 % (36-46); Hemoglobin 13.1 g/dL (12.0-16.0); Lymphocytes Absolute Auto 1700 /uL (1100-4500); Mean Corpuscular HGB Conc 33.9 % (30-36); Mean Corpuscular Hemoglobin 27.6 PG (26-34); Mean Corpuscular Volume 81.5 fL (80-100); Monocytes Absolute Auto 100 /uL (0-900); Monocytes Percent Auto 1.2 % (3-14); Neutrophils Absolute Auto 10000 /uL (1500-7000); Platelet Count 377 X10^3/uL (150-400); Red Blood Cell Count 4.74 X10^6/uL (4.0-5.2); Red Cell Distribution Width 12.7 % (11.6-14.8); White Blood Cell Count 11.9 X10^3/uL (4.5-11.0)
[2024-06-01] MEDS: ACETAMINOPHEN 325 MG TABLET 650 MG PO ×2 (13:04→19:02)
--- NOTE | 2024-06-01 14:56 | PC.NURSE ---
Pt stood at the bedside with stand by assist only. Pt tolerated activity well. No C/O pain or discomfort. Pad changed had small amount of bloody discharge.
[2024-06-01] MEDS: OXYBUTYNIN 5 MG TABLET PO ×2 (15:21→21:27)
[2024-06-01] MEDS: KETOROLAC 30 MG/ML VIAL IV ×2 (15:21→21:26)
--- NOTE | 2024-06-01 16:14 | PC.NURSE ---
Pt has vag packing that is a little uncomfortable when she sits up.
--- NOTE | 2024-06-01 16:58 | PC.NURSE ---
Pt standing at bedside without any assist. Mom is in the room with the pt. Pt tolerated the activity well states she has some gas pain but only 3 on the pain scale.
[2024-06-01] MEDS: PRAZOSIN 1 MG CAPSULE 2 MG PO (21:27)
--- NOTE | 2024-06-01 23:01 | PC.NURSE ---
2129-incisions clean dry and well approximated, scant vaginal bleeding, pt reports 2/10 pain, toradol given for pain, pt resting in bed with no other needs at this time
[2024-06-02] MEDS: ACETAMINOPHEN 325 MG TABLET 650 MG PO ×2 (01:33→07:39)
[2024-06-02 01:48] VITALS: BP 102/52; PULSE 103; RESP 20; TEMP 36.7; O2SAT 97
[2024-06-02] MEDS: KETOROLAC 30 MG/ML VIAL IV (05:57)
[2024-06-02 06:00] VITALS: BP 120/71; PULSE 83; RESP 20; TEMP 36.9; O2SAT 98
[2024-06-02 06:01] LABS: Add Manual Diff / Slide Review NO; Basophils Absolute Auto 100 /uL (0-100); Basophils Percent Auto 0.6 % (0-2); Eosinophils Absolute Auto 0 /uL (0-450); Eosinophils Percent Auto 0.1 % (2-4); Hematocrit 37.6 % (36-46); Hemoglobin 12.7 g/dL (12.0-16.0); Lymphocytes Absolute Auto 1900 /uL (1100-4500); Lymphocytes Percent Auto 13.1 % (25-40); Mean Corpuscular HGB Conc 33.8 % (30-36); Mean Corpuscular Hemoglobin 27.4 PG (26-34); Mean Corpuscular Volume 80.9 fL (80-100); Monocytes Absolute Auto 1200 /uL (0-900); Monocytes Percent Auto 8.2 % (3-14); Neutrophils Absolute Auto 11400 /uL (1500-7000); Platelet Count 391 X10^3/uL (150-400); Red Blood Cell Count 4.64 X10^6/uL (4.0-5.2); Red Cell Distribution Width 13.1 % (11.6-14.8); White Blood Cell Count 14.7 X10^3/uL (4.5-11.0)
--- NOTE | 2024-06-02 06:18 | PC.NURSE ---
pt reports 3/10 pain in her abdomen, 3 laproscopic abdominal incisions clean, dry, and well approximated, skin around incisions showing ecchymosis, scant vaginal bleeding, toradol given for pain, water refilled, scds reapplied, pt has no other needs at this time
--- NOTE | 2024-06-02 06:31 | PC.NURSE ---
MD bruno notified of pt urine output 100ml from [id number], water refilled, as per md bruno no further interventions needed at this time
--- NOTE | 2024-06-02 07:25 | PC.NURSE ---
report given to cody lira and cody alexis
--- NOTE | 2024-06-02 07:43 | PM.DS.IH.1 ---
History of Present Illness History of Present Illness Date Patient Seen: 06/02/24 Time Patient Seen: 07:15 Date of Onset of Symptoms: 06/01/24 Chief complaint: POD1 s/p TLH Narrative: 39yo G0 POD1 s/p TLH for definitive surgical management of AUB. CRISTOBAL per RN, pt states pain well controlled with minimal oral analgesia, has been OOB/ambulating without difficulty. Flores and vaginal packing removed this AM. Tolerating diet without n/v, has not yet passed flatus. Discharge Providers Provider Date of admission: 06/01/24 Discharge Date: 06/02/24 Primary care physician: Trevin Bateman MD Discharge provider: Chloe Mireles MD Summary Hospital Course Discharge Diagnosis: s/p total laparoscopic hysterectomy without oophorectomy Hospital Course: Pt was admitted to facility on day of scheduled procedure. See operative report for full details, procedure uncomplicated and patient tolerated well. Patient had an uncomplicated postoperative course and was meeting all discharge milestones on POD1 pending return of flatus. Status at Discharge Cognitive/behavioral status at discharge: oriented Functional status at discharge: independent ambulation Overall status at discharge: patient is back to baseline Time Spent with Patient Time spent: Less than 30 minutes Exam Vital Signs (past 8 hours): - 06/02/24 01:48 06/02/24 06:00 Temperature 98.1 F 98.4 F Pulse Rate 103 H 83 Respiratory Rate 20 20 Blood Pressure 102/52 L 120/71 Pulse Oximetry 97 98 Oxygen Delivery Method Room Air Const General: cooperative, comfortable and well developed Nutritional Appearance: obese Orientation: alert, awake and oriented x3 Limitations: mental status not altered Resp Effort & Inspection: normal respiratory effort and able to speak in complete sentences Cardio Pulses: normal peripheral pulses GI Inspection: obesity Palpation: soft Auscultation: normal bowel sounds Other: laparoscopic trocar insertion sites c/d/i, dermabond in place Other: flores catheter removed -- 110cc concentrated clear urine vaginal packing removed, 75% saturated Skin General: no rashes or lesions noted Neuro General: patient alert, patient awake and patient oriented x3 Extrem General: normal to inspection Psych Mental Status: mental status grossly normal Judgment: judgment good Objective Labs 06/02/24 05:48 Labs: Laboratory Results - last 24 hr 06/01/24 06/02/24 Unknown 05:48 WBC 11.9 H 14.7 H RBC 4.74 4.64 Hgb 13.1 12.7 Hct 38.7 37.6 MCV 81.5 80.9 MCH 27.6 27.4 MCHC 33.9 33.8 RDW 12.7 13.1 Plt Count 377 391 Neut % (Auto) 84.0 H 78.0 H Lymph % (Auto) 14.0 L 13.1 L [place] % (Auto) 1.2 L 8.2 Eos % (Auto) 0.5 L 0.1 L Baso % (Auto) 0.3 0.6 Neut # (Auto) 18022 H 21827 H Lymph # (Auto) 1700 1900 [place] # (Auto) 100 1200 H Eos # (Auto) 100 0 Baso # (Auto) 0 100 PFSH Medical History (Updated 04/06/24 @ 15:10 by Chloe Mireles MD) Primary dysmenorrhea Abnormal uterine bleeding (AUB) Autistic disorder Right shoulder strain Upper back strain Morbid obesity with BMI of 45.0-49.9, adult Family History Grandmother Age: 93 COPD (chronic obstructive pulmonary disease) Arthritis Asthma Hypertension High cholesterol Mother Age: 60 Endometriosis Hypertension High cholesterol Grandmother Age: 84 COPD (chronic obstructive pulmonary disease) Social History household members: family Smoking Status: Former smoker Discharge Assessment & Plan Assessment and Plan Assessment: 39yo G0 POD1 s/p TLH without oophorectomy for definitive surgical management of AUB to anemia; doing well Postop excellent postoperative course, tolerating diet without n/v, awaiting return of flatus and confirmation of ability to urinate s/p flores removal this AM anticipate dc to home with +void/+flatus strict activity/weight lifting restrictions reviewed at bedside this AM strict pain, bleeding and infectious precautions reviewed dispo: dc to home pending +void/+flatus, routine f/u in office as scheduled Discharge Plan Discharge Plan Patient Disposition: Home Provider Discharge Comment: Nothing in the vagina for 6 weeks. No tampons, intercourse, douching, swimming in fresh water/pools/hot tubs. Tub baths are okay after 2 weeks if the tub is cleaned well first. No lifting >10lbs for 6 weeks. Discharge orders & Medications Discharge Orders: Discharge (Order); Ordered 06/02/24 Ordered By: Chloe Mireles Prescriptions: New acetaminophen 325 mg Tablet 650 mg PO Q6H Qty: 30 0RF ibuprofen 600 mg Tablet 600 mg PO Q6H Qty: 30 0RF oxycodone 5 mg Tablet 5 mg PO Q6H PRN (Reason: Pain, Moderate (4-6)) Qty: 10 0RF sennosides [senna] 8.6 mg tablet 8.6 mg PO BID PRN (Reason: constipation) Qty: 20 0RF Continued prazosin 2 mg capsule 2 mg PO BEDTIME Vraylar 4.5 mg capsule 4.5 mg PO DAILY oxybutynin chloride 5 mg tablet See Rx Instructions .ROUTE .COMPLEX Qty: 270 3RF Dose Instruction: TAKE 1 TABLET BY MOUTH THREE TIMES DAILY . APPOINTMENT REQUIRED FOR FUTURE REFILLS Rx Instructions: TAKE 1 TABLET BY MOUTH THREE TIMES DAILY atomoxetine 10 mg capsule 18 mg PO DAILY Patient Comments: I only take 10 mg daily. vilazodone 10 mg tablet 20 mg PO DAILY fexofenadine-pseudoephedrine [Peyton-D 24 Hour] 180-240 mg Tablet Extended Release 24 Hr 1 tab PO QAM Follow up/Referrals: Trevin Bateman MD [Primary Care Provider] - Diet/Activity/Treatments Diet: Diet as Tolerated and Regular Skin/Wound/Dressing Care Report to your healthcare provider any signs of infection, such as:: chills, fever, increased pain, unusual drainage and unusual redness Visit Report/Discharge Packet Stand Alone Forms: Patient Portal/API Discharge Data Primary Care Provider: Trevin Bateman Attending Provider: Chloe Mireles VTE Deep Vein Thrombosis/Pulmonary Embolism Present on Admission: No IH PROFEE Charge Codes Discharge inpatient/observation: [id number]
--- NOTE | 2024-06-02 08:30 | PC.NURSE ---
0750: Discussed POC with pt. and family member, provider to put in orders for D/C today. Pt. calm and comfortable in room.
--- NOTE | 2024-06-02 08:30 | PC.NURSE ---
0730: assisted Dr. Mireles while she removed pts f/c and vag packing. Pt tolerated activity well.
[2024-06-02] MEDS: OXYBUTYNIN 5 MG TABLET PO (08:40)
== END 2024-06-02 12:10 | disposition home or self-care (01) ==
LOC: OR 06:13 → AC 06:14 → LABOR 11:03
PROVIDERS: PCP Family Medicine; Referring Provider Obstetrics & Gynecology; Visit Provider Obstetrics & Gynecology
PROC: 0UT94ZZ Resection of Uterus, Percutaneous Endoscopic Approach (ICD-10-PCS; CPT 58571; principal; 2024-06-01 07:45)
DX: N93.9 Abnormal uterine and vaginal bleeding, unspecified (principal); N73.6 Female pelvic peritoneal adhesions (postinfective)
CPT/HCPCS: 58571; 36415; 85025; J0131; J0330; J0690; J1100; J1171; J1885; J2250; J2405; J2704; J3010; J3490

== ENCOUNTER 2024-07-09 12:44 | Emergency (ER) | payer OTHER, SELFPAY ==
[2024-06-01 11:03] VITALS: BMI 46.0
[2024-07-09] VITALS (16 sets, daily range): BP systolic 122–154; BP diastolic 72–97; PULSE 93–129; RESP 14–24; TEMP 36.6–36.9; O2SAT 94–97; BMI 46.0
--- NOTE | 2024-07-09 13:22 | EKG_ITS ---
[address] [address] Test Date: 2024-07-09 Pat Name: Omaira Rodgers Department: [facility] Room: Gender: Female Inside Sales Representative: : 1985 Requested By: Order Number: [id number] Reading MD: Mazin Todd Measurements Intervals [place] Rate: 107 P: 41 NM: 122 QRS: -7 QRSD: 72 T: 24 QT: 334 QTc: 445 Interpretive Statements Sinus tachycardia Possible Inferior infarct , age undetermined Electronically Signed On 07-11-2024 16:23:08 PDT by Mazin Todd
--- NOTE | 2024-07-09 13:42 | ED_ITS ---
HPI - General Adult General Chief complaint: Shortness of Breath/Dyspnea Stated complaint: Sent by [place], worried about blood clot Time Seen by Provider: 07/09/24 13:15 Source: patient Mode of arrival: Ambulatory History of Present Illness HPI narrative: 39-year-old woman with a history of asthma, hysterectomy on June 01, presents with dry cough, dyspnea and non pleuritic chest pain that has been present for approximately 7 days. No lower extremity edema or pain, no fever nausea vomiting. The last 3 days has had increasing ear pain and wheezing, Peyton, Mucinex and Tylenol she does not have an inhaler. Related Data Home Medications Medication Instructions Recorded Confirmed fexofenadine-pseudoephedrine ER 1 tab PO QAM 05/06/19 06/01/24 180 mg-240 mg tablet,ext.release 24 hr (Peyton-D 24 Hour) prazosin 2 mg capsule 2 mg PO BEDTIME 09/17/19 06/01/24 cariprazine 4.5 mg capsule 4.5 mg PO DAILY 10/27/20 06/01/24 (Vraylar) atomoxetine 10 mg capsule 18 mg PO DAILY 05/06/24 06/01/24 vilazodone 10 mg tablet 20 mg PO DAILY 05/06/24 06/01/24 Previous Rx's Medication Instructions Recorded oxybutynin chloride 5 mg tablet See Rx Instructions .Route 02/28/24 .COMPLEX #270 tabs acetaminophen 325 mg tablet 650 mg (2 x 325 mg) PO Q6H #30 tabs 06/02/24 ibuprofen 600 mg tablet 600 mg PO Q6H #30 tabs 06/02/24 oxycodone 5 mg tablet 5 mg PO Q6H PRN Pain, Moderate 06/02/24 (4-6) #10 tabs sennosides 8.6 mg tablet (senna) 8.6 mg PO BID PRN constipation #20 06/02/24 tabs albuterol sulfate 90 mcg/actuation 2 puff inhalation Q6H PRN 07/09/24 aerosol inhaler shortness of breath or wheezing #8.5 grams azithromycin 250 mg tablet 250 mg PO DAILY 6 days #6 tabs 07/09/24 Allergies Allergy/AdvReac Type Severity Reaction Status Date / Time hydrocodone [From VICODIN] Allergy Severe Rash and Verified 07/09/24 13:11 vomiting, trouble breathing. diazepam [From Valium] Allergy Intermediate hives Verified 07/09/24 13:11 sumatriptan [From IMITREX] Allergy Unknown Verified 07/09/24 13:11 doxycycline AdvReac Severe skin Verified 07/09/24 13:11 redness, migraine, upset stomach Review of Systems Review of Systems Narrative: Pertinent positive and negative findings as per HPI Patient History Medical History (Updated 07/09/24 @ 17:49 by Malinda Caballero MD) Primary dysmenorrhea Abnormal uterine bleeding (AUB) Autistic disorder Right shoulder strain Upper back strain Morbid obesity with BMI of 45.0-49.9, adult Family History Grandmother Age: 93 COPD (chronic obstructive pulmonary disease) Arthritis Asthma Hypertension High cholesterol Mother Age: 60 Endometriosis Hypertension High cholesterol Grandmother Age: 84 COPD (chronic obstructive pulmonary disease) Social History household members: family Smoking Status: Former smoker Smoking Status: Former smoker tobacco type: cigarettes alcohol intake frequency: 0-2 drinks per day Alcohol type: beer Exam Initial Vital Signs Initial Vital Signs: Vital Signs Temperature 98.4 F 07/09/24 13:07 Pulse Rate 129 H 07/09/24 13:07 Respiratory Rate 18 07/09/24 13:07 Blood Pressure 124/78 07/09/24 13:07 Pulse Oximetry 95 07/09/24 13:07 Oxygen Delivery Method Room Air 07/09/24 13:07 General: Healthy appearing, in no acute distress. Able to give a complete and coherent history. Well-nourished well-developed HEENT: Moist mucous membranes, normal sclera with reactive pupils, Respiratory: Lungs With scattered bibasilar rhonchi, no wheezing no respiratory distress no accessory muscle use Cardiac: tachycardic, otherwise Regular rate and rhythm no murmurs no bruits Abdomen: Soft, nontender, no rebound or guarding, no flank pain Skin: Warm and dry, no rashes Neurologic: Grossly neurologically intact with no obvious asymmetries or abnormalities Extremities: No trauma, no edema Psych: Cooperative, appropriate insight and affect Course Orders Ordered: ED Orders 07/09/24 13:14 EKG-12 Lead Stat 07/09/24 13:33 BNP [NT-proBNP (BNP-Adult 18+)] Stat Complete Blood Count AUTO DIFF Stat Comprehensive Metabolic Panel Stat D Dimer Stat 07/09/24 13:38 Covid-19 + FLU A/B + RSV - PCR Stat 07/09/24 15:04 CT angio chest PE protocol Stat Vital Signs Vital signs: Vital Signs - 8 hr 07/09/24 13:07 07/09/24 13:27 07/09/24 13:30 Temperature 98.4 F Pulse Rate 129 H 111 H 121 H Respiratory Rate 18 21 20 Blood Pressure 124/78 Pulse Oximetry 95 95 95 Oxygen Delivery Method Room Air 07/09/24 13:31 07/09/24 13:31 07/09/24 14:00 Temperature Pulse Rate 116 H 106 H Respiratory Rate 24 21 Blood Pressure 154/81 H Pulse Oximetry 96 96 Oxygen Delivery Method 07/09/24 14:01 07/09/24 14:01 07/09/24 14:30 Temperature Pulse Rate 105 H Respiratory Rate 14 Blood Pressure 122/82 123/72 Pulse Oximetry 97 Oxygen Delivery Method 07/09/24 14:30 07/09/24 15:00 07/09/24 15:00 Temperature Pulse Rate 104 H 102 H Respiratory Rate 20 20 Blood Pressure 130/86 Pulse Oximetry 95 95 Oxygen Delivery Method 07/09/24 15:22 07/09/24 15:22 07/09/24 15:29 Temperature Pulse Rate 96 H Respiratory Rate 24 Blood Pressure 144/87 H 140/85 Pulse Oximetry 97 Oxygen Delivery Method 07/09/24 15:29 07/09/24 15:30 07/09/24 15:30 Temperature Pulse Rate 103 H 101 H Respiratory Rate 22 23 Blood Pressure 141/86 H Pulse Oximetry 95 96 Oxygen Delivery Method 07/09/24 16:00 07/09/24 16:00 07/09/24 16:30 Temperature Pulse Rate 95 H Respiratory Rate 20 Blood Pressure 143/94 H 144/89 H Pulse Oximetry 95 Oxygen Delivery Method 07/09/24 16:30 07/09/24 17:00 07/09/24 17:00 Temperature Pulse Rate 98 H 93 H Respiratory Rate 21 22 Blood Pressure 149/97 H Pulse Oximetry 95 95 Oxygen Delivery Method Medical Decision Making Lab Data 07/09/24 13:33 07/09/24 13:33 Labs: Lab Results 07/09/24 07/09/24 Range/Units 13:33 13:38 WBC 6.2 (4.5-11.0) X10^3/uL RBC 5.27 H (4.0-5.2) X10^6/uL Hgb 14.5 (12.0-16.0) g/dL Hct 42.4 (36-46) % MCV 80.5 (80-100) fL MCH 27.6 (26-34) PG MCHC 34.3 (30-36) % RDW 13.5 (11.6-14.8) % Plt Count 317 (150-400) X10^3/uL Neut % (Auto) 53.1 (50-75) % Lymph % (Auto) 33.5 (25-40) % [place] % (Auto) 11.6 (3-14) % Eos % (Auto) 0.9 L (2-4) % Baso % (Auto) 0.9 (0-2) % Neut # (Auto) 3300 (8476-8857) /uL Lymph # (Auto) 2100 (1003-4926) /uL [place] # (Auto) 700 (0-900) /uL Eos # (Auto) 100 (0-450) /uL Baso # (Auto) 100 (0-100) /uL D-Dimer 696 H (<500) ng/ml Sodium 137 (137-145) mmol/L Potassium 4.3 (3.4-5.1) mmol/L Chloride 107 (98-107) mmol/L Carbon Dioxide 17 L (22-32) mmol/L BUN 9 (7-17) mg/dL Creatinine 0.71 (0.52-1.04) mg/dL Estimated GFR > 60 (>60) mL/min BUN/Creatinine Ratio 12.7 (6-22) Glucose 117 H (70-99) mg/dL Calcium 9.1 (8.4-10.2) mg/dL Total Bilirubin 0.7 (0.2-1.3) mg/dL AST 58 H (14-36) IU/L ALT 38 H (<35) IU/L Alkaline Phosphatase 106 (38-126) U/L NT-Pro-B Natriuret Pep < 20 (<125) pg/mL Total Protein 7.9 (6.3-8.2) g/dL Albumin 4.5 (3.5-5.0) g/dL Globulin 3.4 (1.7-4.1) g/dL Albumin/Globulin Ratio 1.3 (1.0-2.8) SARS-CoV-2 (PCR) Negative (Negative) Influenza A (RT-PCR) Flu a negative (NEGATIVE) Influenza B (RT-PCR) Flu b negative (NEGATIVE) RSV (PCR) Negative (Negative) MDM Narrative Medical decision making narrative: CC: Cough increasing for a week, chest pain, tachypnea, hysterectomy less than a month ago Complicating co-morbidities: significant anxiety and agoraphobia Data collected from: patient Differential considered: PE, pneumonia, acute asthma exacerbation, anxiety, viral syndrome Exam documented above, pertinent findings include: patient was tachycardic, no obvious wheezes or rhonchi no respiratory distress Lab Test results independently reviewed as above. Pertinent findings: CBC is unremarkable chemistries are reassuring D-dimer is minimally elevated Independently reviewed EKG: EKG shows sinus tachycardia, 107 no acute ischemic changes Imaging studies independently reviewed: CT angiogram to rule out pulmonary embolus shows no evidence of pulmonary emboli but does suggest a developing right middle lobe pneumonia Discussion: 39-year-old woman with a week of increasing respiratory symptoms. On repeat clinical exam still not appreciating significant wheeze. Cough is nonproductive. CT scan suggests right middle lobe pneumonia which would go along with her clinical presentation. No evidence of pulmonary embolism, sepsis, acute coronary syndrome, congestive heart failure. Patient does not tolerate doxycycline, amoxicillin and never works for her, she finds that azithromycin has been very effect past and prefers this. With shared decision- making we will give her a Z-Fredy. She currently does not have an inhaler at home, prescription for albuterol will be refilled. She does have a spacer available. She is not currently wheezing I do not believe steroids are indicated. No evidence of sepsis or other infection that would require further imaging or hospitalization and she is safe for discharge Discharge Plan Departure Patient Disposition: Home Clinical Impression: Right middle lobe pneumonia Qualifiers: Pneumonia type: due to unspecified organism Qualified Code(s): J18.9 - Pneumonia, unspecified organism Instructions: DI for Pneumonia -- Adult Activity Restrictions/Additional Instructions: thank you for coming in today with fever, chest pain, recent surgery and mild tachycardia there was significant concern for more significant infection and blood clots in her lungs. Fortunately, your blood work was quite reassuring there is no evidence of life- threatening infection, sepsis, no blood clots in your lungs, no significant heart failure and no reason for further workup or hospitalization the CT scan does suggest that you are developing a mild bacterial pneumonia in your right middle lobe and for that I am going to give you a prescription for azithromycin. I am also going to give you a prescription for albuterol to use as needed for wheezing. You are not having significant wheeze right now and I do not think steroids are going to be appropriate nor required. I did check for influenza COVID and RSV and all of those Respiratory tests were negative. Please complete the course of antibiotics and feel free to return if you have worsening symptoms Prescriptions: New azithromycin 250 mg tablet 250 mg PO DAILY 6 Days Qty: 6 0RF Rx Instructions: start on day 2 of therapy albuterol sulfate 90 mcg/actuation HFA aerosol inhaler 2 puff inhalation Q6H PRN (Reason: shortness of breath or wheezing) Qty: 8.5 0RF No Action prazosin 2 mg capsule 2 mg PO BEDTIME Vraylar 4.5 mg capsule 4.5 mg PO DAILY oxybutynin chloride 5 mg tablet See Rx Instructions .ROUTE .COMPLEX Qty: 270 3RF Dose Instruction: TAKE 1 TABLET BY MOUTH THREE TIMES DAILY . APPOINTMENT REQUIRED FOR FUTURE REFILLS Rx Instructions: TAKE 1 TABLET BY MOUTH THREE TIMES DAILY atomoxetine 10 mg capsule 18 mg PO DAILY Patient Comments: I only take 10 mg daily. vilazodone 10 mg tablet 20 mg PO DAILY fexofenadine-pseudoephedrine [Peyton-D 24 Hour] 180-240 mg Tablet Extended Release 24 Hr 1 tab PO QAM acetaminophen 325 mg Tablet 650 mg PO Q6H Qty: 30 0RF ibuprofen 600 mg Tablet 600 mg PO Q6H Qty: 30 0RF oxycodone 5 mg Tablet 5 mg PO Q6H PRN (Reason: Pain, Moderate (4-6)) Qty: 10 0RF sennosides [senna] 8.6 mg tablet 8.6 mg PO BID PRN (Reason: constipation) Qty: 20 0RF Referrals: Trevin Bateman MD [Primary Care Provider] - Stand Alone Forms: Patient Portal/API/Survey
[2024-07-09 13:44] LABS: Add Manual Diff / Slide Review NO; Basophils Absolute Auto 100 /uL (0-100); Basophils Percent Auto 0.9 % (0-2); Eosinophils Absolute Auto 100 /uL (0-450); Eosinophils Percent Auto 0.9 % (2-4); Hematocrit 42.4 % (36-46); Hemoglobin 14.5 g/dL (12.0-16.0); Lymphocytes Absolute Auto 2100 /uL (1100-4500); Lymphocytes Percent Auto 33.5 % (25-40); Mean Corpuscular HGB Conc 34.3 % (30-36); Mean Corpuscular Hemoglobin 27.6 PG (26-34); Mean Corpuscular Volume 80.5 fL (80-100); Monocytes Absolute Auto 700 /uL (0-900); Monocytes Percent Auto 11.6 % (3-14); Neutrophils Absolute Auto 3300 /uL (1500-7000); Neutrophils Percent Auto 53.1 % (50-75); Platelet Count 317 X10^3/uL (150-400); Red Blood Cell Count 5.27 X10^6/uL (4.0-5.2); Red Cell Distribution Width 13.5 % (11.6-14.8); White Blood Cell Count 6.2 X10^3/uL (4.5-11.0)
[2024-07-09 13:57] LABS: D Dimer 696 ng/ml (<500)
[2024-07-09 13:59] LABS: Alanine Aminotransferase 38 IU/L (<35); Albumin 4.5 g/dL (3.5-5.0); Albumin Globulin Ratio 1.3 (1.0-2.8); Alkaline Phosphatase 106 U/L (38-126); Aspartate Aminotransferase 58 IU/L (14-36); BUN Creatinine Ratio 12.7 (6-22); Bilirubin Total 0.7 mg/dL (0.2-1.3); Blood Urea Nitrogen 9 mg/dL (7-17); Calcium 9.1 mg/dL (8.4-10.2); Carbon Dioxide 17 mmol/L (22-32); Chloride 107 mmol/L (98-107); Estimated Glomerular Filt Rate > 60 mL/min (>60); Globulin 3.4 g/dL (1.7-4.1); Glucose 117 mg/dL (70-99); Potassium 4.3 mmol/L (3.4-5.1); Sodium 137 mmol/L (137-145); Total Protein 7.9 g/dL (6.3-8.2)
[2024-07-09 14:00] LABS: HEMOLYSIS 76 (0-50)
[2024-07-09 14:08] LABS: NT-proBNP (BNP-Adult 18+) < 20 pg/mL (<125)
--- NOTE | 2024-07-09 15:04 | DI.CT.S_ITS ---
PROCEDURE: CT ANGIO CHEST PE PROTOCOL INDICATIONS: chest pain, dyspnea, tachycardia, hysterectomy 1 month ago TECHNIQUE: After the administration of intravenous contrast, 2 mm thick sections acquired from the pulmonary apices to the posterior costophrenic angles. 3-dimensional maximum intensity projection (MIP) coronal and sagittal reformats were then acquired through the thorax. For radiation dose reduction, the following was used: automated exposure control, adjustment of mA and/or kV according to patient size. COMPARISON: None. FINDINGS: Image quality: Diagnostic. Pulmonary arteries: Pulmonary arteries are normal in size, and demonstrate no intraluminal filling defects to suggest central pulmonary embolism. Lower Neck: No enlarged lymph nodes. Thyroid: No thyroid nodules which require sonographic follow up, per consensus guidelines. Axillae: No enlarged lymph nodes. Chest Wall: Unremarkable. Bones: Unremarkable. Lungs and Pleura: No pneumothorax or pleural effusions. Very subtle patchy density in the right middle lobe, potentially representing combination of atelectasis and infiltrate.. Heart: Heart size is normal. No pericardial effusion. Thoracic Vessels: No aortic aneurysm. Mediastinum and Jennifer: No enlarged lymph nodes. Esophagus: No wall thickening. No hiatal hernia. Upper Abdomen: Visualized upper abdomen solid organs and bowel loops appear normal. IMPRESSION: No pulmonary embolus. Subtle patchy density in the right middle lobe, potentially representing a combination of atelectasis and infiltrate. Dictated by: Yosef Welsh M.D. on 07/09/2024 at 15:59 Approved by: Yosef Welsh M.D. on 07/09/2024 at 16:01
[2024-07-09 16:03] LABS: Influenza A - CEPHEID Flu A NEGATIVE (NEGATIVE); Influenza B - CEPHEID Flu B NEGATIVE (NEGATIVE); Respiratory Syncytial Virus Negative (Negative)
[2024-07-09 16:06] LABS: COVID-19 CEPHEID 4-PLEX PCR Negative (Negative)
== END 2024-07-09 18:17 | disposition home or self-care (01) ==
PROVIDERS: Emergency Provider Emergency Medicine; PCP Family Medicine
DX: J18.9 Pneumonia, unspecified organism (principal); R07.89 Other chest pain
CPT/HCPCS: 0241U; 36415; 71275; 80053; 83880; 85025; 85379; 93005; 99284; Q9967

== ENCOUNTER → 2024-07-16 16:39 | Outpatient (CLI) | payer OTHER, SELFPAY ==
[2024-06-01 11:03] VITALS: BMI 46.0
--- NOTE | 2024-07-16 16:41 | DI.RAD.S_ITS ---
PROCEDURE: XR CHEST 2V INDICATIONS: f/u pneumonia TECHNIQUE: 2 views of the chest were acquired. COMPARISON: [facility], CHEST 2 VIEW, 12/21/2016, 15:08. [facility], , CHEST 1 VIEW, 12/15/2016, 12:16. FINDINGS: Surgical changes and devices: None. Lungs and pleura: Lungs are clear. No pleural effusions or pneumothorax. Mediastinum: Mediastinal contours are normal. Heart size is normal. Bones and chest wall: No suspicious bony abnormalities. Soft tissues appear unremarkable. IMPRESSION: No acute cardiopulmonary abnormality is seen. Dictated by: Oscar Collier M.D. on 07/16/2024 at 16:54 Approved by: Oscar Collier M.D. on 07/16/2024 at 16:55
== END ==
PROVIDERS: PCP Family Medicine; Referring Provider Family Medicine; Visit Provider Physician Assistant
DX: J18.9 Pneumonia, unspecified organism (principal)
CPT/HCPCS: 71046